=== PATIENT | male | born 1945 | race Caucasian/White ===

== ENCOUNTER → 2019-04-18 15:11 | Outpatient (BNVA) | payer MEDICARE, SELFPAY | PROVIDERS: PCP Nurse Practitioner Family; Visit Provider Nurse Practitioner Family | DX: N30.01 Acute cystitis with hematuria (principal); R39.9 Unspecified symptoms and signs involving the genitourinary system | CPT/HCPCS: 81003; 87086 ==

== ENCOUNTER → 2019-05-09 13:15 | Outpatient (BNVA) | payer MEDICARE, SELFPAY | PROVIDERS: PCP Nurse Practitioner Family; Visit Provider Nurse Practitioner Family | DX: R30.0 Dysuria (principal) | CPT/HCPCS: 81003; 87086 ==

== ENCOUNTER 2019-05-13 13:41 | Outpatient (CLI) | payer MEDICARE, SELFPAY ==
--- NOTE | 2019-05-13 13:52 | CT_ITS ---
WS: [id number] CT ABDOMEN NON-CONTRAST PLUS CONTRAST TECHNIQUE: Noncontrast CT of the abdomen and contrast-enhanced CT of the abdomen with coronal and sag ittal reformatted images. CLINICAL INFORMATION: ADRENAL NODULE COMPARISON: None. DLP: 2383.[address] scans at [facility] use at least one of these dose optimization techniques: automat ed exposure control; mA and/or kV adjustment per patient size (includes targeted exams where dose is matched to clinical indication); or iterative reconstruction. FINDINGS: Diffuse fatty infiltration of the liver. Portal vein and splenic vein are normal. Normal spleen. Normal GE junction. Lung bases are well aerated. Normal pancreatic parenchymal enhance ment. Normal caliber abdominal aorta. Mild aortic calcification. No abdominal aortic aneurysm. Right adrenal gland is normal. Left adrenal nodule measuring 13 mm. Relative and absolute washout calculati ons are consistent with adrenal adenoma. No hydronephrosis. Normal renal parenchymal enhancement. Shotty periaortic lymph nodes. Normal visual ized lumbar spine. CT/CT abdomen wo/w con [id number] IMPRESSION: 1. 13 mm left adrenal nodule with imaging characteristics consistent with adre nal adenoma. 2. Mild diffuse fatty infiltration of the liver. 3. Normal bilateral renal parenchymal enhancement. No hydronephrosis. 4. Normal caliber abdominal aorta with mild aortic calcification. 5. Shotty periaortic lymph nodes. No lymphadenopathy.
[2019-05-13 14:17] LABS: Blood Urea Nitrogen 14 mg/dL (8-23)
[2019-05-13] MEDS: iohexol 300 mg/mL 100 mL Btl IV (14:22)
== END 2019-05-13 13:42 | disposition home or self-care (01) ==
LOC: RADWPI 13:52
PROVIDERS: PCP Nurse Practitioner Family; Visit Provider Nurse Practitioner Family
DX: E27.8 Other specified disorders of adrenal gland (principal); K76.0 Fatty (change of) liver, not elsewhere classified
CPT/HCPCS: 74170; 82565; 84520; Q9967

== ENCOUNTER 2019-11-10 14:11 | Outpatient (CLI) | payer MEDICARE, SELFPAY ==
--- NOTE | 2019-11-10 14:17 | CT_ITS ---
WS: [id number] CT scan of the abdomen without Oral and IV contrast. Additional two-dimensional coronal and sagittal reconstruction was performed. 11/10/2019 Clinical Data: ADRENAL ADENOMA, LEFT FOCUS ON ADRENAL GLANDS Comparison: None. DLP: 559.[address] scans at [facility] use at least one of these dose optimization techniques: automat ed exposure control; mA and/or kV adjustment per patient size (includes targeted exams where dose is matched to clinical indication); or iterative reconstruction. Findings: The left adrenal adenoma is the same size and appearance as seen on the earlier scan. The right adren al gland is normal. The lower lungs show no nodules, masses or effusions. The liver, gallbladder, spleen, and pancreas are normal. The kidneys show equal bilateral contrast excretion with no cyst or masses. The abdominal aorta is normal in size with calcification in the wall.. No abscess, adenopathy, ascites, mass, obstruction or free air is seen. The stomach and visualized sm all bowel and colon are unremarkable. CT/CT abdomen w con* [id number] Impression: 1. No change in left adrenal adenoma. 2. Negative for acute intra-abdominal abnormalities.
[2019-11-10 14:41] LABS: Blood Urea Nitrogen 18 mg/dL (8-23)
[2019-11-10] MEDS: iohexol 300 mg/mL 100 mL Btl IV (15:00)
== END 2019-11-10 14:12 | disposition home or self-care (01) ==
LOC: RADWPI 14:14
PROVIDERS: Family Provider Nurse Practitioner Family; PCP Nurse Practitioner Family; Visit Provider Physician Assistant
DX: D35.02 Benign neoplasm of left adrenal gland (principal)
CPT/HCPCS: 74160; 82565; 84520; Q9967

== ENCOUNTER → 2020-02-01 11:23 | Outpatient (BNVA) | payer MEDICARE, SELFPAY | PROVIDERS: Family Provider Nurse Practitioner Family; PCP Nurse Practitioner Family; Visit Provider Nurse Practitioner Family | DX: E11.9 Type 2 diabetes mellitus without complications (principal); I10 Essential (primary) hypertension | CPT/HCPCS: 80053; 80061; 83036 ==

== ENCOUNTER → 2020-05-22 10:41 | Outpatient (BNVA) | payer MEDICARE, SELFPAY | PROVIDERS: Family Provider Nurse Practitioner Family; PCP Nurse Practitioner Family; Visit Provider Nurse Practitioner Family | DX: E11.9 Type 2 diabetes mellitus without complications (principal); I10 Essential (primary) hypertension; E78.5 Hyperlipidemia, unspecified | CPT/HCPCS: 80053; 80061; 83036 ==

== ENCOUNTER → 2020-11-27 15:06 | Outpatient (BNVA) | payer MEDICARE, SELFPAY | PROVIDERS: Family Provider Nurse Practitioner Family; PCP Nurse Practitioner Family; Visit Provider Nurse Practitioner Family | DX: I10 Essential (primary) hypertension (principal); E11.9 Type 2 diabetes mellitus without complications | CPT/HCPCS: 80053; 83036 ==

== ENCOUNTER → 2021-06-18 10:47 | Outpatient (BNVA) | payer MEDICARE, SELFPAY | PROVIDERS: Family Provider Nurse Practitioner Family; PCP Nurse Practitioner Family; Visit Provider Nurse Practitioner Family | DX: E11.9 Type 2 diabetes mellitus without complications (principal); I10 Essential (primary) hypertension | CPT/HCPCS: 80053; 83036 ==

== ENCOUNTER → 2022-02-25 11:49 | Outpatient (BNVA) | payer MEDICARE, SELFPAY | PROVIDERS: Family Provider Nurse Practitioner Family; PCP Nurse Practitioner Family; Visit Provider Nurse Practitioner Family | DX: E78.5 Hyperlipidemia, unspecified (principal); I10 Essential (primary) hypertension; E11.9 Type 2 diabetes mellitus without complications | CPT/HCPCS: 80053; 80061; 83036 ==

== ENCOUNTER → 2022-08-11 10:21 | Outpatient (BNVA) | payer MEDICARE, SELFPAY | PROVIDERS: Family Provider Nurse Practitioner Family; PCP Nurse Practitioner Family; Visit Provider Nurse Practitioner Family | DX: E78.5 Hyperlipidemia, unspecified (principal); I10 Essential (primary) hypertension; E11.9 Type 2 diabetes mellitus without complications | CPT/HCPCS: 80053; 80061; 83036; 85025 ==

== ENCOUNTER → 2022-12-10 09:27 | Outpatient (BNVA) | payer MEDICARE, SELFPAY | PROVIDERS: Family Provider Nurse Practitioner Family; PCP Nurse Practitioner Family; Visit Provider Nurse Practitioner Family | DX: I10 Essential (primary) hypertension (principal); E11.9 Type 2 diabetes mellitus without complications; E78.5 Hyperlipidemia, unspecified | CPT/HCPCS: 80053; 80061; 83036 ==

== ENCOUNTER → 2023-06-17 15:48 | Outpatient (BNVA) | payer MEDICARE, SELFPAY | PROVIDERS: Family Provider Nurse Practitioner Family; PCP Nurse Practitioner Family; Visit Provider Nurse Practitioner Family | DX: I10 Essential (primary) hypertension (principal); E11.9 Type 2 diabetes mellitus without complications | CPT/HCPCS: 80053; 80061; 83036 ==

== ENCOUNTER → 2023-09-03 11:22 | Outpatient (BNVA) | payer MEDICARE, SELFPAY | PROVIDERS: Family Provider Nurse Practitioner Family; PCP Nurse Practitioner Family; Visit Provider Nurse Practitioner Family | DX: E11.9 Type 2 diabetes mellitus without complications (principal); I10 Essential (primary) hypertension | CPT/HCPCS: 80053; 83036; 84439; 84443 ==

== ENCOUNTER → 2024-02-29 09:21 | Outpatient (BNVA) | payer MEDICARE, SELFPAY | PROVIDERS: Family Provider Nurse Practitioner Family; PCP Nurse Practitioner Family; Visit Provider Nurse Practitioner Family | DX: E11.9 Type 2 diabetes mellitus without complications (principal); I10 Essential (primary) hypertension | CPT/HCPCS: 80053; 80061; 83036 ==

== ENCOUNTER → 2024-09-21 15:29 | Outpatient (BNVA) | payer MEDICARE, SELFPAY | PROVIDERS: Family Provider Nurse Practitioner Family; PCP Nurse Practitioner Family; Visit Provider Nurse Practitioner Family | DX: I10 Essential (primary) hypertension (principal); E11.9 Type 2 diabetes mellitus without complications | CPT/HCPCS: 80053; 80061; 83036 ==

== ENCOUNTER 2024-10-14 10:19 | Emergency (ER) | payer MEDICARE, SELFPAY ==
--- NOTE | 2024-10-14 10:24 | XR_ITS ---
WS: [id number] XR chest 1V portable [id number] REASON FOR EXAM: palpitiations FINDINGS: Mild to moderate tortuosity and ectasia of the thoracic aorta. Normal heart size. Calcified granulomatous disease bilaterally. No acute pulmonary parenchymal or pleural abnormality. Mild degenerative spondylosis of the thoracic spine for age. XR/XR chest 1V portable [id number] IMPRESSION: No acute chest abnormality.
--- NOTE | 2024-10-14 10:24 | ECG_ITS ---
[facility] 2024-[facility]14 Pat Name: Raheem Michaels Department: Room: Gender: Male Inspector Tester Sorter: : 1945 Requested By: Jennifer Rose Order Number: [id number] Nany MD: Dayanara Lund M.D. Measurements Intervals Ronks Rate: 61 P: 64 NH: 175 QRS: -23 QRSD: 104 T: 50 QT: 374 QTc: 378 Interpretive Statements SINUS RHYTHM BORDERLINE LEFT AXIS DEVIATION [QRS AXIS < -20] INTERPRETATION BASED ON A DEFAULT AGE OF 40 YEARS No previous ECG available for comparison Electronically Signed On 10-15-2024 14:10:43 CDT by Dayanara Lund M.D. [email or web address]
--- OUTSIDE RECORDS SUMMARY | 2024-10-14 10:30 | XMS_ITS | Encounter Summary ---
Author Organization [facility] Address [address] [place] [address] Care Team Providers Care Airplane Coverer Name Role Phone Non-Staff, Physician Primary Care Provider Unava ilable Encounter Details Date Type Department Care Team (Latest Contact Info) Description 08/21/1999 Outpatient [facility] Family Medicine [place] [address] [facility] [address] [place] [address] Eitan Lazar DO NO ADDRESS ON FILE Unspecified essential hypertension (Primary Dx) Social History Tobacco Use Types Packs/Day Years Used Date Smoking Tobacco: Never Assessed Sex and Gender Information Value Date Recorded Sex Assigned at Not on file 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
--- OUTSIDE RECORDS SUMMARY | 2024-10-14 10:30 | XMS_ITS | Encounter Summary ---
Author Organization [facility] Address [address] [place] [address] Care Team Providers Care Visual Supervisor Name Role Phone Non-Staff, Physician Primary Care Provider Unava ilable Encounter Details Date Type Department Care Team (Latest Contact Info) Description 10/27/2000 Outpatient Historical [facility] Family Medicine- [address] [place] [address] Eitan Lazar, NO ADDRESS ON FILE Unspecified essential hypertension (Primary Dx) Social History Tobacco Use Types Packs/Day Years Used Date Smoking Tobacco: Never Assessed Sex and Gender Information Value Date Recorded Sex Assigned at Not on file 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
--- OUTSIDE RECORDS SUMMARY | 2024-10-14 10:30 | XMS_ITS | Encounter Summary ---
Author Organization [facility] Address [address] [place] [address] Care Team Providers Care Slitter Scorer Cut Off Operator Name Role Phone Non-Staff, Physician Primary Care Provider Unava ilable Encounter Details Date Type Department Care Team (Latest Contact Info) Description 08/15/2003 Outpatient Historical 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
--- OUTSIDE RECORDS SUMMARY | 2024-10-14 10:30 | XMS_ITS | Encounter Summary ---
Author Organization [facility] Address [address] [place] [address] Care Team Providers Care Social Worker Masters Name Role Phone Non-Staff, Physician Primary Care Provider Unava ilable Encounter Details Date Type Department Care Team (Latest Contact Info) Description 02/09/2004 Outpatient Historical [facility] Family Medicine [place] [address] [facility] [address] [place] [address] Eitan Lazar DO NO ADDRESS ON FILE HYPERTENSION NOS (Primary Dx) Social History Tobacco Use Types Packs/Day Years Used Date Smoking Tobacco: Never Assessed Sex and Gender Information Value Date Recorded Sex Assigned at Not on file Legal Sex Male 6:01 AM LAWYERS Gender Identity Not on file Sexual Orientation Not on file documented as of this encounter Plan of Treatment Not on file documented as of this encounter Visit Diagnoses Diagnosis Unspecified essential hypertension- Primary documented in this encounter Care Teams Social Worker Masters Relationship Specialty Start Date End Date Non-Staff, Physician NO ADDRESS ON FILE PCP - General 12/22/19 documented as of this encounter
--- OUTSIDE RECORDS SUMMARY | 2024-10-14 10:30 | XMS_ITS | Encounter Summary ---
Author Organization [facility] Address [address] [place] [address] Care Team Providers Care Carry In Worker Name Role Phone Non-Staff, Physician Primary Care Provider Unava ilable Encounter Details Date Type Department Care Team (Latest Contact Info) Description 11/23/2001 Outpatient Historical [facility] Family Medicine- [address] [place] [address] Eitan Lazar DO NO ADDRESS ON FILE HYPERTENSION NOS (Primary Dx) Social History Tobacco Use Types Packs/Day Years Used Date Smoking Tobacco: Never Assessed Sex and Gender Information Value Date Recorded Sex Assigned at Not on file Legal 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
--- OUTSIDE RECORDS SUMMARY | 2024-10-14 10:30 | XMS_ITS | Clinical Summary ---
Author Organization [facility] Address [address]: [place] [address] Care Team Providers Care Auto Top Mechanic Name Role Phone Non-Staff, Physician Primary Care Provider Unava ilable Allergies No known active allergies Medications amLODIPine (NORVASC) 10 mg tablet TAKE 1 TABLET BY MOUTH ONCE DAILY *DUE FOR APPOINTMENT WITH PRIMARY CARE PHYSICIAN AND LABS FOR FUTURE REFILLS* 7 Tablet 0 0 Active glipiZIDE (GLUCOTROL) 10 mg tablet TAKE 1 TABLET BY MOUTH TWICE DAILY WITH MEALS.. 180 Tablet 3 9 Active dicyclomine (BENTYL) 10 mg capsuleIndicatio ns:Abdominal pain, unspecified abdominal location TAKE 1 CAPSULE ( 10 MG ) BY MOUTH 4 TIMES DAILY FOR 10 DAYS 40 Capsule 1 9 Active hydroCHLOROthiaz south 25 mg tablet TAKE 1 TABLET BY MOUTH ONCE DAILY 90 Tablet 0 9 Active amLODIPine (NORVASC) 10 mg tablet TAKE 1 TABLET BY MOUTH ONCE DAILY 90 Tablet 1 9 Active lisinopriL (PRINIVIL) 20 mg tabletIndication s:Essential hypertension TAKE 1 TABLET BY MOUTH TWICE DAILY. 180 Tablet 3 8 Active metoprolol tartrate 37.5 mg TabletIndication s:Essential hypertension TAKE ONE TABLET BY MOUTH TWICE DAILY. 180 Tablet 3 8 Active amitriptyline (ELAVIL) 50 mg tablet TAKE ONE TABLET BY MOUTH TWICE DAILY. 180 Tablet 3 8 Active metFORMIN (GLUCOPHAGE XR) 500 mg Extended Release 24 hour tabletIndication s:Type 2 diabetes mellitus without complication, without long-term current use of insulin ([facility]) TAKE TWO TABLETS BY MOUTH TWICE DAILY WITH MEALS and 1 tab at noon. 450 Tablet 1 8 Active Active Problems Problem Noted Date Diagnosed Date Hypertension 03/21/2011 DM (diabetes mellitus), type 2 03/21/2011 Immunizations Immunization Administration Dates Next Due (TDVAX)(7 YRS UP) TETANUS AN D DIPHTHERIA TOXOIDS, ADSORBED (2 LF OF TETANUS TOXOID AND 2 LF OF DIPHTHERIA TOXOID), 0.5ML (PF), IM 01/26/2007 Influenza Seasonal Unspecifi ed Formulation IM 12/28/2006,01/28/2006,02/24/2005 Social History Tobacco Use Types Packs/Day Years Used Date Smoking Tobacco: Former Smokeless Tobacco: Never Alcohol Use Standard Drinks/Week Comments No 0 (1 standard drink = 0.6 oz pur e alcohol) Sex and Gender Information Value Date Recorded Sex Assigned at Not on file Legal Sex Male 12:27 AM I O PSYCHOLOGIST Gender Identity Not on file Sexual Orientation Not on file Last Filed Vital Signs Vital Sign Reading Time Taken Comments Blood Pressure 130/72 10/13/2019 2:50 PM CDT Pulse 72 10/13/2019 2:50 PM CDT Temperature 36.7 C (98 F) 10/13/2018 1:46 PM CDT Respiratory Rate 16 10/13/2018 1:46 PM CDT Oxygen Saturation - - Inhaled Oxygen Concentration - - Weight 86.2 kg (190 lb) 10/13/2019 2:50 PM CDT Height 182.9 cm (6') 10/13/2019 2:50 PM CDT Body Mass Index 25.77 10/13/2019 2:50 PM CDT Plan of Treatment Health Maintenance Due Date Last Done Comments DIABETES ANNUAL RETINAL EXAM 1965 PNEUMOCOCCAL VACCINE 50+ YEA RS (1 of 2 - PCV) 1966 ZOSTER VACCINE (1 of 2) 1997 DTAP/TDAP/TD VACCINES (1 - Tdap) 01/27/2007 01/27/20 07 DIABETES ANNUAL FOOT EXAM 09/01/20182017, 08/27/2017, 07/24/2016 DIABETES MICROALBUMIN ANNUAL SCREEN 11/10/2018 11/10/2017, 07/17/2016 LDL CHOLESTEROL ANNUAL 11/10/2018 11/10/2017, 2014 DIABETES HBA1C Q 6 MONTHS 11/19/20202020, 02/01/2020, 12/02/2018, Additional history exists RSV VACCINE (60+ or ) (1 - 1-dose 75+ series) 2022 INFLUENZA VACCINE (#1) 2024 7, 01/28/2006, 02/24/2005 Procedures Procedure Name Priority Date/Time Associated Diagnosis Comments MICROALBUMIN/CREATININE RATIO, RANDOM UR 11/10/2017 12:00 AM CDT LIPID PANEL 11/10/2017 12:00 AM CDT HEMOGLOBIN A1C 11/10/2017 12:00 AM CDT from Last 3 Months or Most Recently Relevant to Health Maintenance Results * MICROALBUMIN/CREATININE RATIO, RANDOM UR (11/10/2017 12:00 AM CDT) [employer] ROLL TUBE SETTER URINE ORDERABLES Final Resu lt * HEMOGLOBIN A1C (11/10/2017 12:00 AM CDT) [employer] ROLL TUBE SETTER CHEMISTRY ORDERABLES Final Result * LIPID PANEL (11/10/2017 12:00 AM CDT) [employer] ROLL TUBE SETTER CHEMISTRY ORDERABLES Final Result from Last 3 Months or Most Recently Relevant to Health Maintenance Care Teams Auto Top Mechanic Relationship Specialty Start Date End Date Non-Staff, Physician NO ADDRESS ON FILE PCP - General 12/22/19
--- OUTSIDE RECORDS SUMMARY | 2024-10-14 10:30 | XMS_ITS | Clinical Summary ---
Author Organization [facility] Address [address] [facility] [address] [place] [address] Care Team Providers Care Study Abroad Advisor Name Role Phone Non-Staff, Physician Primary Care Provider Unava ilable Allergies No known active allergies Medications amitriptyline (ELAVIL) 50 mg tablet TAKE ONE TABLET BY MOUTH TWICE DAILY. 180 Tablet 3 8 Active lisinopril (PRINIVIL) 20 mg tabletIndication s:Essential hypertension TAKE 1 TABLET BY MOUTH TWICE DAILY. 180 Tablet 3 8 Active metoprolol tartrate 37.5 mg TabletIndication s:Essential hypertension TAKE ONE TABLET BY MOUTH TWICE DAILY. 180 Tablet 3 8 Active metFORMIN (GLUCOPHAGE XR) 500 mg Extended Release 24 hour tabletIndication s:Type 2 diabetes mellitus without complication, without long-term current use of insulin ([facility]) TAKE TWO TABLETS BY MOUTH TWICE DAILY WITH MEALS and 1 tab at noon. 450 Tablet 1 8 Active glipiZIDE (GLUCOTROL) 10 mg tablet TAKE 1 TABLET BY MOUTH TWICE DAILY WITH MEALS.. 180 Tablet 3 9 Active dicyclomine (BENTYL) 10 mg capsuleIndicatio ns:Abdominal pain, unspecified abdominal location TAKE 1 CAPSULE ( 10 MG ) BY MOUTH 4 TIMES DAILY FOR 10 DAYS 40 Capsule 1 9 Active amLODIPine (NORVASC) 10 mg tablet TAKE 1 TABLET BY MOUTH ONCE DAILY 90 Tablet 1 9 Active HYDROCHLOROTHIAZ DAYDAY 25 mg tablet TAKE 1 TABLET BY MOUTH ONCE DAILY 90 Tablet 9 Active amLODIPine (NORVASC) 10 mg tablet TAKE 1 TABLET BY MOUTH ONCE DAILY *DUE FOR APPOINTMENT WITH PRIMARY CARE PHYSICIAN AND LABS FOR FUTURE REFILLS* 7 Tablet 0 Active Active Problems Problem Noted Date Diagnosed [...] on file Legal 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 Gender Identity Not on file Sexual Orientation Not on file Last Filed Vital Signs Vital Sign Reading Time Taken Comments Blood Pressure 130/72 10/13/2019 2:50 PM CDT Pulse 72 10/13/2019 2:50 PM CDT Temperature 36.7 C (98 F) 10/13/2018 1:46 PM CDT Respiratory Rate 16 10/13/2018 1:46 PM CDT Oxygen Saturation 94% 10/13/2018 1:46 PM CDT Inhaled Oxygen Concentration - - Weight 86.2 [...] 01/27/2007 01/27/20 07 DIABETES ANNUAL FOOT EXAM 08/27/2018 08/27/2017, DIABETES MICROALBUMIN ANNUAL SCREEN 11/10/2018 11/10/2017, 07/17/2016, 03/27/2011 LDL CHOLESTEROL ANNUAL 11/10/2018 8, 11/02/2014, 09/01/2013, Additional history exists DIABETES HBA1C Q 6 MONTHS 07/31/20202019, 12/02/2018, 11/10/2017, Additional history exists RSV VACCINE (60+ or ) (1 - 1-dose 75+ series) 2022 INFLUENZA VACCINE (#1) 2024 7, 01/28/2006, 02/24/2005 Procedures Procedure Name Priority Date/Time Associated Diagnosis Comments MICROALBUMIN/CREATINI NE RATIO, RANDOM UR Routine 11/10/2017 Type 2 diabetes mellitus without complication, without long-term current use of insulin ([facility]) LIPID PANEL Routine 11/10/2017 Essential hypertension HEMOGLOBIN A1C Routine 11/10/2017 Type 2 diabetes mellitus without complication, without long-term current use of insulin ([facility]) from Last 3 Months or Most Recently Relevant to Health Maintenance Results * MICROALBUMIN/CREATININE RATIO, RANDOM UR (11/10/2017) Urine URINE SPECIMEN OBTAINED BY CLEAN CATCH PROCEDURE / Unknown [employer] URINE ORDERABLES Final Resu lt Performing Organization Address [facility]/ZIP Co de Phone Number [facility] * (ABNORMAL) HEMOGLOBIN A1C (11/10/2017) Blood Social Tools [employer]EN CHEMISTRY ORDERABLES Final Result Performing Organization Address [facility] Co de Phone Number [facility] * LIPID PANEL (11/10/2017) Blood Social Tools CHUR[employer] WARDEN CHEMISTRY ORDERABLES Final Result [facility] from Last 3 Months or Most Recently Relevant to Health Maintenance Insurance MEDICARE PART A AND B Care Teams Study Abroad Advisor Relationship Specialty Start Date End Date Non-Staff, Physician NO ADDRESS ON FILE PCP - General 12/22/19
--- OUTSIDE RECORDS SUMMARY | 2024-10-14 10:30 | XMS_ITS | Encounter Summary ---
Author Organization [facility] Address [address] [place] [address] Care Team Providers Care Window Treatment Installer Name Role Phone Non-Staff, Physician Primary Care Provider Unava ilable Encounter Details Date Type Department Care Team (Latest Contact Info) Description 06/18/1998 Outpatient Historical [facility] Family Medicine [place] [address] [facility] [address] [place] [address] Eitan Lazar DO NO ADDRESS ON FILE Unspecified essential hypertension (Primary Dx) Social History Tobacco Use Types Packs/Day Years Used Date Smoking Tobacco: Never Assessed Sex and Gender Information Value Date Recorded Sex Assigned at Not on file Legal 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
--- OUTSIDE RECORDS SUMMARY | 2024-10-14 10:30 | XMS_ITS | Encounter Summary ---
Author Organization [facility] Address [address] [place] [address] Care Team Providers Care Sciences Dean Name Role Phone Non-Staff, Physician Primary Care Provider Unava ilable Encounter Details Date Type Department Care Team (Latest Contact Info) Description 02/24/2005 Outpatient Historical [facility] Family Medicine [place] [address] [facility] [address] [place] [address] Eitan Lazar DO NO ADDRESS ON FILE HYPERTENSION NOS (Primary Dx); Vaccine for influenza Social History Tobacco Use Types Packs/Day Years Used Date Smoking Tobacco: Never Assessed Sex and Gender Information Value Date Recorded Sex Assigned at Not on file 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
--- OUTSIDE RECORDS SUMMARY | 2024-10-14 10:30 | XMS_ITS | Encounter Summary ---
Author Organization [facility] Address [address] [place] [address] Care Team Providers Care Court Specialist Name Role Phone Non-Staff, Physician Primary Care Provider Unava ilable Encounter Details Date Type Department Care Team (Latest Contact Info) Description 10/23/1999 Outpatient [facility] Family Medicine [place] [address] [facility] [address] [place] [address] Eitan Lazar DO NO ADDRESS ON FILE Type II or unspecified type diabetes mellitus without mention of complication, not stated as uncontrolled (Primary Dx) Social History Tobacco Use Types Packs/Day Years Used Date Smoking Tobacco: Never Assessed Sex and Gender Information Value Date Recorded Sex Assigned at Not on file Legal 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
--- OUTSIDE RECORDS SUMMARY | 2024-10-14 10:30 | XMS_ITS | Encounter Summary ---
Author Organization [facility] Address [address] [place] [address] Care Team Providers Care Pet Supplies Salesperson Name Role Phone Non-Staff, Physician Primary Care Provider Unava ilable Encounter Details Date Type Department Care Team (Latest Contact Info) Description 01/28/2006 Outpatient [facility] Family Medicine [place] [address] [facility] [address] [place] [address] Eitan Lazar DO NO ADDRESS ON FILE Unspecified Essential Hypertension (Primary Dx); Other and Unspecified Hyperlipidemia; Vaccine for influenza Social History Tobacco Use Types Packs/Day Years Used Date Smoking Tobacco: Never Assessed Sex and Gender Information Value Date Recorded Sex Assigned at Not on file Legal Sex Male 6:01 AM CARGO SERVICE AGENT Gender Identity Not on file Sexual Orientation Not on file documented as of this encounter Plan of Treatment Not on file documented as of this encounter Visit Diagnoses Diagnosis Unspecified essential hypertension- Primary Other and unspecified hyperlipidemia Vaccine for influenza Need for prophylactic vaccination and inoculation against influenza documented in this encounter Care Teams Pet Supplies Salesperson Relationship Specialty Start Date End Date Non-Staff, Physician NO ADDRESS ON FILE PCP - General 12/22/19 documented as of this encounter
--- OUTSIDE RECORDS SUMMARY | 2024-10-14 10:30 | XMS_ITS | Encounter Summary ---
Author Organization [facility] Address [address] [place] [address] Care Team Providers Care Pharmacy Assistant Name Role Phone Non-Staff, Physician Primary Care Provider Unava ilable Encounter Details Date Type Department Care Team (Latest Contact Info) Description 10/04/1999 Outpatient [facility] Family Medicine [place] [address] [facility] [address] [place] [id number] Eitan Lazar DO NO ADDRESS ON FILE Type II or unspecified type diabetes mellitus without mention of complication, not stated as uncontrolled (Primary Dx) Social History Tobacco Use Types Packs/Day Years Used Date Smoking Tobacco: Never Assessed Sex and Gender Information Value Date Recorded Sex Assigned at Not on file Legal Sex Male 6: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
--- OUTSIDE RECORDS SUMMARY | 2024-10-14 10:30 | XMS_ITS | Encounter Summary ---
Author Organization [facility] Address [address] [place] [address] Care Team Providers Care Nurse Infection Control Name Role Phone Non-Staff, Physician Primary Care Provider Unava ilable Encounter Details Date Type Department Care Team (Latest Contact Info) Description 10/02/2005 Outpatient [facility] Family Medicine [place] [address] [facility] [address] [place] [address] Eitan Lazar DO NO ADDRESS ON FILE DM w/o Complication Type II (CMS/HCC) (Primary Dx) Social History Tobacco Use Types Packs/Day Years Used Date Smoking Tobacco: Never Assessed Sex and Gender Information Value Date Recorded Sex Assigned at Not on file 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
--- OUTSIDE RECORDS SUMMARY | 2024-10-14 10:30 | XMS_ITS | Encounter Summary ---
Author Organization [facility] Address [address] [place] [address] Care Team Providers Care Balance Clerk Name Role Phone Non-Staff, Physician Primary Care Provider Unava ilable Encounter Details Date Type Department Care Team (Latest Contact Info) Description 12/14/2002 Outpatient Historical [facility] Family Medicine [place] [address] [facility] [address] [place] [address] Eitan Lazar DO NO ADDRESS ON FILE HYPERTENSION NOS (Primary Dx) Social History Tobacco Use Types Packs/Day Years Used Date Smoking Tobacco: Never Assessed Sex and Gender Information Value Date Recorded Sex Assigned at Not on file 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
[2024-10-14 10:35] VITALS: BP 119/61; PULSE 61; RESP 16; TEMP 36.7; O2SAT 97; BMI 25.1
[2024-10-14 11:15] LABS: Hematocrit 35.9 % (37-53); Hemoglobin 12.30 g/dL (11.27-16.99); Mean Corpuscular HGB Conc 34.3 g/dL (30-55); Mean Corpuscular Hemoglobin 29.9 pg (27-33); Mean Corpuscular Volume 87.3 fl (82-101); Nucleated Red Blood Cells % 0 %; Platelet Count 171 10^3/cmm (157-399); Red Blood Count 4.11 10^6/uL (3.85-5.65); White Blood Count 9.10 10^3/uL (3.29-11.43)
[2024-10-14 11:29] VITALS: BP 116/83; PULSE 60; RESP 16; O2SAT 99
--- NOTE | 2024-10-14 11:30 | PC.PHAR ---
Pt has an rx for Glipizide 10mg bid 08/09/24 90ds-Pt states provider stopped this medication inn August.
[2024-10-14 11:31] VITALS: BP 116/83; PULSE 60; RESP 18; O2SAT 99
[2024-10-14 11:36] LABS: Magnesium 1.7 mg/dL (1.7-2.3); Troponin(5th) Baseline 16 ng/L (0-15)
[2024-10-14 11:37] LABS: Slide Review Slide Review Perform
[2024-10-14 11:44] LABS: Alanine Aminotransferase 10 U/L (0-41); Albumin Level 4.5 g/dL (3.5-5.2); Alkaline Phosphatase 109 U/L (40-130); Anion Gap 19.4 (5-19); Aspartate Amino Transferase 15 U/L (0-40); Blood Urea Nitrogen 15 mg/dL (8-23); Calcium 9.7 mg/dL (8.5-10.5); Carbon Dioxide 27 mmol/L (22-29); Chloride 88 mmol/L (98-107); Creatinine Clr Calc Pharmacy 52.3915; Globulin 2.0 g/dL (1.3-4.6); Glucose 143 mg/dL (65-115); NT Pro B Type Natriuretic Pept 228 pg/mL (0-450); Osmolality Calculated 273 mOsm/kg (285-295); Potassium 4.4 mmol/L (3.5-5.1); Sodium 130 mmol/L (136-145); Total Protein 6.5 g/dL (6.6-8.7)
--- NOTE | 2024-10-14 12:29 | W.ED.ARRPALP ---
HPI - Arrhythmia/Palpitations General: Chief Complaint: Arrhythmia/Palpitations Stated Complaint: dr rudy for heart fluttering Time Seen by Provider: 10/14/24 10:57 Source: patient History of Present Illness: 79-year-old male presents with complaint of heart fluttering or skipping for approximately 2 weeks. Patient reports these episodes typically occur in the morning hours. He states the sensation feels like his heart is skipping and typically resolves within about an hour after taking his morning medications. Today's episode woke him up, and he checked his heart rate, which was 82 bpm at the time of symptoms. Patient denies any associated chest pain, shortness of breath, or other symptoms. He reports that his heart rate is typically maintained between 55-60 bpm on his current medications, and he feels these episodes may be occurring as his medications are wearing off. Patient contacted his PCP, Dr. Tolentino, who advised him to come to the ED for evaluation. Related Data Home Medications ?Medication ?Instructions ?Recorded ?Confirmed amitriptyline 50 mg tablet 50 mg PO BID 10/14/24 10/14/24 amlodipine 10 mg tablet 10 mg PO DAILY 10/14/24 10/14/24 dicyclomine 20 mg tablet 20 mg PO TID PRN abdominal pain 10/14/24 10/14/24 hydrochlorothiazide 25 mg tablet 25 mg PO DAILY 10/14/24 10/14/24 lisinopril 20 mg tablet 20 mg PO BID 10/14/24 10/14/24 Previous Rx's ?Medication ?Instructions ?Recorded metformin 1,000 mg tablet 1,000 mg PO BID #180 tabs 09/21/24 metoprolol tartrate 100 mg tablet 100 mg PO BID #180 tabs 09/21/24 Allergies Allergy/AdvReac Type Severity Reaction Status Date / Time No Known Allergies Allergy Verified 02/29/24 08:56 [facility] ED PFSH: Medical History (Updated 10/14/24 @ 12:31 by Oscar Virk MD) Anxiety Hx of irritable bowel syndrome DM w/o complication type II HTN (hypertension) Adrenal nodule Family History Father Hypertension Diabetes Social History Smoking and tobacco/nicotine status: never used tobacco/nicotine Alcohol intake: never Substance/Drug Use: never Lives independently: Yes Household members: spouse Housing: House Marital status: Physical Exam Const: COMMON NORMALS: no acute distress, average body habitus, alert and well nourished GENERAL APPEARANCE: cooperative ORIENTATION/CONSCIOUSNESS: Yes awake HENMT: COMMON NORMALS: normocephalic and atraumatic HEAD & SCALP: normocephalic and atraumatic Eye: COMMON NORMALS: conjunctivae normal CONJUNCTIVA: Yes conjunctivae normal Neck/C-Spine: GENERAL: Yes normal visual inspection Resp: COMMON NORMALS: normal respiratory effort, No retractions and No use of accessory muscles Cardio: COMMON NORMALS: regular rhythm and Peripheral pulses 2+ throughout RHYTHM: regular rhythm PERIPHERAL PULSES: Peripheral pulses 2+ throughout GI: COMMON NORMALS: Soft to palpation and non-tender PALPATION: Yes Soft to palpation Extremity: COMMON NORMALS: full ROM and no pedal edema Neuro: COMMON NORMALS: no focal motor deficits SENSORIUM/ORIENTATION: Yes alert Skin: COMMON NORMALS: no rashes or lesions noted GENERAL SKIN EXAM: no rashes or lesions noted Course Vital Signs: Vital signs: Vital Signs Temperature 98.1 F 10/14/24 10:35 Pulse Rate 60 10/14/24 11:31 Respiratory Rate 18 10/14/24 11:31 Blood Pressure 116/83 10/14/24 11:31 Pulse Oximetry 99 10/14/24 11:31 Oxygen Delivery Me thod Room Air 10/14/24 10:35 MDM - Arrhythmia/Palpitations Medical Decision Making ROS: Constitutional: Denies fever, chills, or fatigue. Cardiovascular: Positive for palpitations/irregular heartbeat. Denies chest pain, syncope, or edema. Respiratory: Denies shortness of breath, cough, or wheezing. All other systems reviewed and negative. MEDICATIONS AND ALLERGIES: Meds: Metoprolol 100 mg (previously 75 mg), Aspirin daily, Diabetes medication (unspecified) Allergies: None reported PAST HISTORICAL DATA: PMH: Diabetes, Hypertension, History of irregular heart rhythm (unspecified type, occurred a long time ago ) PSH: None reported Social: Not documented Family History: Not documented PHYSICAL EXAM: General: Well-appearing male in no acute distress HEENT: Head normocephalic and atraumatic. Mucous membranes moist Neck: Supple Respiratory: Clear breath sounds bilaterally. No increased work of breathing Cardiac: Regular rate and rhythm. Equal pulses times four. No murmurs noted Abdomen: Soft, non-distended, no rebound or guarding Extremities: No clubbing, cyanosis, or edema Neuro: Cranial nerves grossly intact, no focal motor or sensory deficits noted INITIAL IMPRESSION AND PLAN: Given the history and presentation, the primary working diagnosis is intermittent cardiac dysrhythmia, possibly premature ventricular contractions (PVCs) or paroxysmal atrial fibrillation. Additional considerations include medication timing effect, sinus arrhythmia, and anxiety-related palpitations. Based on this initial impression I will order: 1. EKG to evaluate for any current arrhythmia or conduction abnormalities 2. Basic labs including CBC, CMP, and cardiac enzymes to rule out any metabolic causes or cardiac injury 3. Chest X-ray to evaluate for any cardiopulmonary abnormalities 4. Cardiology consultation for outpatient Holter monitor placement TEST INTERPRETATIONS: EKG: Sinus rhythm. No ischemic changes, ST elevations, or depressions CBC: WBC 9.1, Hemoglobin 12.3, Platelets 171 - within acceptable limits CMP: Sodium 130, Chloride 88, BUN 15, Creatinine 1.3 - mild hyponatremia noted Cardiac enzymes: Troponin 16 (just barely elevated above normal range) Chest X-ray: Negative for acute cardiopulmonary processes CONSIDERED BUT NOT PERFORMED: Inpatient cardiac monitoring CONSIDERED but NOT DONE due to no perceived benefit given symptoms have been ongoing for two weeks, current normal EKG, essentially normal troponin, and stable vital signs. Outpatient Holter monitoring is more appropriate for capturing intermittent symptoms. FINAL IMPRESSION: Based on all the above, my clinical impression is most compatible with intermittent cardiac dysrhythmia, likely premature ventricular contractions (PVCs) or paroxysmal atrial fibrillation. The clinical picture is not currently suggestive of acute coronary syndrome, heart failure, or valvular heart disease. Although other conditions were also considered, they were deemed unlikely based on the clinical information available. CLINICAL DISPOSITION: The patient's current condition is stable in my estimation and the most appropriate and indicated disposition at this time is discharge home with outpatient Holter monitor and follow-up with PCP. The patient is safe for discharge home as he has had these symptoms for two weeks without progression, has normal vital signs, a normal EKG, and essentially normal cardiac enzymes. His symptoms are intermittent and have consistently resolved on their own. He is alert, oriented, and able to understand discharge instructions. Outpatient monitoring with a Holter monitor is the appropriate next step to capture these intermittent episodes, as discussed with cardiology. RISK STRATIFICATION AND CLINICAL DECISION RULES APPLIED: HEART Score: 2 (Low Risk) - History: Moderately suspicious (1 point) - ECG: Normal (0 points) - Age: >=5 years (1 point) - Risk factors: Hypertension, diabetes (0 points - need 3+ for 1 point) - Troponin: Normal or slightly elevated (0 points) Interpretation: HEART score of 2 indicates a low risk (<2%) of major adverse cardiac events within 6 weeks. This supports the decision for outpatient management with follow-up rather than admission. CASE SUMMARY: 79-year-old male with history of diabetes and hypertension presented with 2-week history of intermittent heart fluttering or skipping sensations, typically occurring in the morning and resolving after taking his medications. Patient denied chest pain, shortness of breath, or other concerning symptoms. Physical examination was unremarkable with normal vital signs. Diagnostic workup included EKG showing normal sinus rhythm, laboratory studies with mild hyponatremia and minimally elevated troponin, and a negative chest X-ray. After consultation with cardiology, it was determined that the patient's symptoms were consistent with intermittent cardiac dysrhythmia, possibly PVCs or paroxysmal atrial fibrillation. Given the stable presentation, low HEART score, and duration of symptoms without progression, the patient was discharged home with plans for outpatient Holter monitoring and follow-up with his primary care physician. Patient was provided with clear instructions on when to return to the ED if symptoms worsen. Lab Data I reviewed the patient's lab results. 10/14/24 11:06 10/14/24 11:06 Radiology Impressions Chest X-Ray 10/14/24 10:24 IMPRESSION: No acute chest abnormality. Laboratory Results WBC 9.10 10^3/uL (3.29-11.43) 10/14/24 11:06 RBC 4.11 10^6/uL (3.85-5.65) 10/14/24 11:06 Hgb 12.30 g/dL (11.27-16.99) 10/14/24 11:06 Hct 35.9 % (37-53) L 10/14/24 11:06 MCV 87.3 fl (82-101) 10/14/24 11:06 MCH 29.9 pg (27-33) 10/14/24 11:06 MCHC 34.3 g/dL (30-55) 10/14/24 11:06 RDW 13.2 % (12.1-15.1) 10/14/24 11:06 Plt Count 171 10^3/cmm (157-399) 10/14/24 11:06 MPV 8.7 fL (7.4-10.4) 10/14/24 11:06 Neut % (Auto) 34.5 % 10/14/24 11:06 Lymph % (Auto) 56.8 % 10/14/24 11:06 [place] % (Auto) 7.3 % 10/14/24 11:06 Eos % (Auto) 0.8 % 10/14/24 11:06 Baso % (Auto) 0.3 % 10/14/24 11:06 Neut # (Auto) 3.14 10^3/uL (1.8-7.7) 10/14/24 11:06 Lymph # (Auto) 5.2 10^3/uL (0.8-4.8) H 10/14/24 11:06 [place] # (Auto) 0.7 10^3/uL (0.2-0.9) 10/14/24 11:06 Eos # (Auto) 0.1 10^3/uL (0.0-0.8) 10/14/24 11:06 Baso # (Auto) 0.0 10^3/uL (0.0-0.1) 10/14/24 11:06 Nucleated RBC % (auto) 0 % 10/14/24 11:06 Nucleated RBCs # 0.0 /100WBC 10/14/24 11:06 Sodium 130 mmol/L (136-145) L 10/14/24 11:06 Potassium 4.4 mmol/L (3.5-5.1) 10/14/24 11:06 Chloride 88 mmol/L (98-107) L 10/14/24 11:06 Carbon Dioxide 27 mmol/L (22-29) 10/14/24 11:06 Anion Gap 19.4 (5-19) H 10/14/24 11:06 BUN 15 mg/dL (8-23) 10/14/24 11:06 Creatinine 1.3 mg/dL (0.7-1.2) H 10/14/24 11:06 GFR Calculation Not Reportable 10/14/24 11:06 Glucose 143 mg/dL (65-115) H 10/14/24 11:06 Calculated Osmolality 273 mOsm/kg (285-295) L 10/14/24 11:06 Calcium 9.7 mg/dL (8.5-10.5) 10/14/24 11:06 Magnesium 1.7 mg/dL (1.7-2.3) 10/14/24 11:06 Total Bilirubin 0.3 mg/dL (0.15-1.2) 10/14/24 11:06 AST 15 U/L (0-40) 10/14/24 11:06 ALT 10 U/L (0-41) 10/14/24 11:06 Alkaline Phosphatase 109 U/L (40-130) 10/14/24 11:06 Troponin T Baseline 16 ng/L (0-15) H 10/14/24 11:06 NT-Pro-B Natriuret Pep 228 pg/mL (0-450) 10/14/24 11:06 Total Protein 6.5 g/dL (6.6-8.7) L 10/14/24 11:06 Albumin 4.5 g/dL (3.5-5.2) 10/14/24 11:06 Globulin 2.0 g/dL (1.3-4.6) 10/14/24 11:06 All radiology interpretation(s) finalized by discharge Discharge Plan Discharge Patient Disposition: Home Clinical Impression: Palpitations Condition: Stable Prescriptions: No Action metformin 1,000 mg tablet 1,000 mg PO BID Qty: 180 1RF metoprolol tartrate 100 mg tablet 100 mg PO BID Qty: 180 1RF lisinopril 20 mg tablet 20 mg PO BID amitriptyline 50 mg tablet 50 mg PO BID dicyclomine 20 mg tablet 20 mg PO TID PRN (Reason: abdominal pain ) amlodipine 10 mg tablet 10 mg PO DAILY hydrochlorothiazide 25 mg tablet 25 mg PO DAILY Discharge Orders: Discharge ED (Routine); Ordered 10/14/24 Ordered By: Oscar Virk Referrals: Randa Rojas FNP [Primary Care Provider, Family Practice] Dayanara Lund MD [Physician, Cardiology] - 2 weeks Discharge Activity: Resume usual activity Patient Instructions: Heart Palpitations (ED), Opioid Safety, Pain Management, Patient Portal & Tyra Instructions Activity Restrictions/Additional Instructions: Instructions: 1. Continue all your current medications as prescribed, including your Metoprolol and daily aspirin. 2. Follow up with your primary care physician, Dr. Tolentino, within 1 week to discuss your symptoms and arrange for Holter monitor placement. 3. Rest as needed and avoid excessive caffeine, alcohol, and strenuous activity until evaluated by your doctor. 4. Monitor your heart rate and blood pressure as you have been doing. Return to the Emergency Department immediately if you experience: - Chest pain or pressure - Shortness of breath or difficulty breathing - Dizziness, lightheadedness, or fainting - Palpitations that do not resolve or are accompanied by other symptoms - Severe headache or confusion Print Language: Yoruba Coding Level of Care Code ED Egg Separator for Alex Dee
[2024-10-14 12:51] VITALS: BP 131/67; PULSE 59; RESP 16; O2SAT 99
== END 2024-10-14 12:52 | disposition home or self-care (01) ==
PROVIDERS: Physician Assistant; Emergency Provider Student in an Organized Health Care Education/Training Program; PCP Nurse Practitioner Family
DX: R00.2 Palpitations (principal); Z79.84 Long term (current) use of oral hypoglycemic drugs
CPT/HCPCS: 36415; 71045; 80053; 83735; 83880; 84484; 85025; 93005; 99285

== ENCOUNTER 2024-10-18 10:17 | Emergency (ER) | payer MEDICARE, SELFPAY ==
--- NOTE | 2024-10-18 10:18 | XR_ITS ---
WS: [id number] PORTABLE CHEST HISTORY: chest pain COMPARISON: 10/14/2024 Lungs are clear and well expanded. No pleural effusion or pneumothorax. Cardiac size: Normal. Mediastinum/Aorta: Normal mediastinum. No osseous abnormality seen. XR/XR chest 1V portable [id number] IMPRESSION: Unremarkable portable chest.
--- NOTE | 2024-10-18 10:18 | ECG_ITS ---
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 Measurements Intervals [place] Rate: 58 P: 70 NV: 195 QRS: -10 QRSD: 101 T: 48 QT: 383 QTc: 379 Interpretive Statements SINUS BRADYCARDIA INTERPRETATION BASED ON A DEFAULT AGE OF 40 YEARS Compared to ECG 10/14/2024 10:33:39 Sinus rhythm no longer present Electronically Signed On 10-20-2024 09:05:18 CDT by Wyatt Friend M.D. [id number]
--- NOTE | 2024-10-18 10:28 | W.ED.ARRPALP ---
HPI - Arrhythmia/Palpitations General: Chief Complaint: Arrhythmia/Palpitations Stated Complaint: Heart Palpitations Time Seen by Provider: 10/18/24 10:18 Source: patient Mode of arrival: ambulatory Limitations: no limitations History of Present Illness: 79-year-old male who presents to the ED with complaints of palpitations since last night. Patient was here 4 days ago for the same complaint and was discharged home with instructions to follow-up with primary care and plan for Holter monitor. Patient states that last night his episode lasted longer than it normally does, lasting almost all night. He was concerned with the duration of his episode but states that the episode felt the same as his previous ones. He states that his heart feels like it is skipping beats . States he has had these symptoms all my life . He reports that currently in the ED his symptom has resolved. Denies any recent dizziness, lightheadedness, dyspnea, or syncope. He has an appointment with his primary care on Thursday. He is currently on metoprolol tartrate 100 mg BID. No other complaints at this time. He has no chest pain, dyspnea, or palpitations at time of my initial examination. MD complaint: skipped beats Onset (ago): day(s) (1) Duration: now resolved Severity: mild Context: occurred during rest Associated symptoms: Reports no associated symptoms; Deny nausea, pre-syncope, syncope or vomiting Related Data Home Medications ?Medication ?Instructions ?Recorded ?Confirmed amitriptyline 50 mg tablet 50 mg PO BID 10/14/24 10/14/24 amlodipine 10 mg tablet 10 mg PO DAILY 10/14/24 10/14/24 dicyclomine 20 mg tablet 20 mg PO TID PRN abdominal pain 10/14/24 10/14/24 hydrochlorothiazide 25 mg tablet 25 mg PO DAILY 10/14/24 10/14/24 lisinopril 20 mg tablet 20 mg PO BID 10/14/24 10/14/24 Previous Rx's ?Medication ?Instructions ?Recorded metformin 1,000 mg tablet 1,000 mg PO BID #180 tabs 09/21/24 metoprolol tartrate 100 mg tablet 100 mg PO BID #180 tabs 09/21/24 Allergies Allergy/AdvReac Type Severity Reaction Status Date / Time No Known Allergies Allergy Verified 02/29/24 08:56 Review of Systems Const: Denies: fever(s), chills, body aches, fatigue or malaise Card: Reports: palpitations; Denies: chest pain, irregular heart rhythm, edema, swelling of feet/ankles, lightheadedness, syncope, pre-syncope, dyspnea on exertion, orthopnea, leg pain with exertion or acrocyanosis Resp: Denies: dyspnea GI: Denies: nausea or vomiting Neuro: Denies: headache(s) or dizziness PFSH ED PFSH: Medical History Anxiety Hx of irritable bowel syndrome DM w/o complication type II HTN (hypertension) Adrenal nodule Family History Father Hypertension Diabetes Social History Smoking and tobacco/nicotine status: never used tobacco/nicotine Alcohol intake: never Substance/Drug Use: never Lives independently: Yes Household members: spouse Housing: House Marital status: Physical Exam Const: COMMON NORMALS: no acute distress, average body habitus, patient oriented x3, no limitations, healthy appearing, alert and well nourished GENERAL APPEARANCE: cooperative ORIENTATION/CONSCIOUSNESS: Yes awake, Yes oriented to person, Yes oriented to place and Yes oriented to time HENMT: COMMON NORMALS: normocephalic and atraumatic HEAD & SCALP: normocephalic and atraumatic Neck/C-Spine: COMMON NORMALS: full ROM, no lymphadenopathy, supple and no meningeal signs Chest: COMMONS NORMALS: normal inspection of the chest Resp: COMMON NORMALS: normal respiratory effort and clear to auscultation bilaterally AUSCULTATION: clear to auscultation bilaterally Cardio: COMMON NORMALS: regular rhythm RATE: bradycardic RHYTHM: regular rhythm GI: COMMON NORMALS: Normal to inspection, nondistended, normoactive bowel sounds present, Soft to palpation, non-tender, No hepatosplenomegaly present and no masses PALPATION: Yes Soft to palpation and Yes No hepatosplenomegaly present : COMMON NORMALS: Yes no CVA tenderness BLADDER/KIDNEY EXAM: Yes no CVA tenderness Back/Pelvis: COMMON NORMALS: no CVA tenderness and thoracic and lumbar spine normal to inspection Extremity: COMMON NORMALS: normal to inspection, capillary refill normal, no clubbing, cyanosis or edema, no calf tenderness and no pedal edema GENERAL: Yes normal exam except as noted Neuro: COMMON NORMALS: patient oriented x3, moves all extremities, no focal motor deficits, no sensory deficits noted and gait normal SENSORIUM/ORIENTATION: Yes alert, Yes oriented to person, Yes oriented to place and Yes oriented to time MENINGEAL SIGNS: Yes no meningeal signs Skin: COMMON NORMALS: no rashes or lesions noted GENERAL SKIN EXAM: no rashes or lesions noted Course Vital Signs: Vital signs: Vital Signs Temperature 98.0 F 10/18/24 10:31 Pulse Rate 54 L 10/18/24 10:31 Respiratory Rate 16 10/18/24 10:31 Blood Pressure 149/75 10/18/24 10:31 Pulse Oximetry 100 10/18/24 10:31 Oxygen Delivery Me thod Room Air 10/18/24 10:31 MDM - Arrhythmia/Palpitations Medical Decision Making Patient has been completely asymptomatic during his stay. EKG is nonischemic. His baseline troponin is 16 which seems to be his normal. He has no complaints of chest pain. CXR is unremarkable. Spoke to our case management team who will work on getting him set up with an outpatient Holter monitor as they do not think this was completed on his last visit. He does have follow-up with primary care on Thursday. Patient is stable for discharge from the emergency department. Differential Diagnosis Likely palpitations, anxiety, sinus tachycardia, artial fibrillation, ventricular premature beats and supraventricular tachycardia Medical Records I reviewed the patient's medical records. Lab Data I reviewed the patient's lab results. 10/18/24 10:55 10/18/24 10:55 Radiology Impressions Chest X-Ray 10/18/24 10:18 IMPRESSION: Unremarkable portable chest. Laboratory Results WBC 8.28 10^3/uL (3.29-11.43) 10/18/24 10:55 RBC 3.97 10^6/uL (3.85-5.65) 10/18/24 10:55 Hgb 12.10 g/dL (11.27-16.99) 10/18/24 10:55 Hct 34.6 % (37-53) L 10/18/24 10:55 MCV 87.2 fl (82-101) 10/18/24 10:55 MCH 30.5 pg (27-33) 10/18/24 10:55 MCHC 35.0 g/dL (30-55) 10/18/24 10:55 RDW 13.2 % (12.1-15.1) 10/18/24 10:55 Plt Count 144 10^3/cmm (157-399) L 10/18/24 10:55 MPV 8.8 fL (7.4-10.4) 10/18/24 10:55 Neut % (Auto) 26.8 % 10/18/24 10:55 Lymph % (Auto) 69.2 % 10/18/24 10:55 [place] % (Auto) 2.4 % 10/18/24 10:55 Eos % (Auto) 0.8 % 10/18/24 10:55 Baso % (Auto) 0.4 % 10/18/24 10:55 Neut # (Auto) 2.22 10^3/uL (1.8-7.7) 10/18/24 10:55 Lymph # (Auto) 5.7 10^3/uL (0.8-4.8) H 10/18/24 10:55 [place] # (Auto) 0.2 10^3/uL (0.2-0.9) 10/18/24 10:55 Eos # (Auto) 0.1 10^3/uL (0.0-0.8) 10/18/24 10:55 Baso # (Auto) 0.0 10^3/uL (0.0-0.1) 10/18/24 10:55 Nucleated RBC % (auto) 0 % 10/18/24 10:55 Nucleated RBCs # 0.0 /100WBC 10/18/24 10:55 Sodium 131 mmol/L (136-145) L 10/18/24 10:55 Potassium 3.9 mmol/L (3.5-5.1) 10/18/24 10:55 Chloride 91 mmol/L (98-107) L 10/18/24 10:55 Carbon Dioxide 26 mmol/L (22-29) 10/18/24 10:55 Anion Gap 17.9 (5-19) 10/18/24 10:55 BUN 11 mg/dL (8-23) 10/18/24 10:55 Creatinine 1.2 mg/dL (0.7-1.2) 10/18/24 10:55 GFR Calculation Not Reportable 10/18/24 10:55 Glucose 141 mg/dL (65-115) H 10/18/24 10:55 Calculated Osmolality 274 mOsm/kg (285-295) L 10/18/24 10:55 Calcium 9.5 mg/dL (8.5-10.5) 10/18/24 10:55 Total Bilirubin 0.3 mg/dL (0.15-1.2) 10/18/24 10:55 AST 13 U/L (0-40) 10/18/24 10:55 ALT 10 U/L (0-41) 10/18/24 10:55 Alkaline Phosphatase 105 U/L (40-130) 10/18/24 10:55 Troponin T Baseline 16 ng/L (0-15) H 10/18/24 10:55 NT-Pro-B Natriuret Pep 243 pg/mL (0-450) 10/18/24 10:55 Total Protein 6.2 g/dL (6.6-8.7) L 10/18/24 10:55 Albumin 4.2 g/dL (3.5-5.2) 10/18/24 10:55 Globulin 2.0 g/dL (1.3-4.6) 10/18/24 10:55 All radiology interpretation(s) finalized by discharge Discharge Plan Discharge Patient Disposition: Home Clinical Impression: Palpitations Condition: Stable Prescriptions: No Action metformin 1,000 mg tablet 1,000 mg PO BID Qty: 180 1RF metoprolol tartrate 100 mg tablet 100 mg PO BID Qty: 180 1RF lisinopril 20 mg tablet 20 mg PO BID amitriptyline 50 mg tablet 50 mg PO BID dicyclomine 20 mg tablet 20 mg PO TID PRN (Reason: abdominal pain ) amlodipine 10 mg tablet 10 mg PO DAILY hydrochlorothiazide 25 mg tablet 25 mg PO DAILY Discharge Orders: Discharge ED (Routine); Ordered 10/18/24 Ordered By: Jennifer Rose Referrals: Randa Rojas FNP [Primary Care Provider, Family Practice] Patient Instructions: Heart Palpitations (DC), Patient Portal & Tyra Instructions Activity Restrictions/Additional Instructions: As we discussed, your workup here was benign. You have been asymptomatic during your emergency department stay. Plan will be for you to follow-up with primary care on Thursday as scheduled. Our case management team is working on your outpatient Holter monitor. Print Language: Cook Islander Coding Level of Care Code ED Independent Living Specialist for Alex Dee
--- OUTSIDE RECORDS SUMMARY | 2024-10-18 10:28 | XMS_ITS | Encounter Summary ---
Author Organization [facility] Address [address] [place] [address] Care Team Providers Care Keeper Head Name Role Phone Non-Staff, Physician Primary Care Provider Unava ilable Encounter Details Date Type Department Care Team (Latest Contact Info) Description 12/14/2002 Outpatient Historical [facility] Family Medicine [place] [address] [facility] [address] [place] [address] Eitan Lazar DO NO ADDRESS ON FILE HYPERTENSION NOS (Primary Dx) Social History Tobacco Use Types Packs/Day Years Used Date Smoking Tobacco: Never Assessed Sex and Gender Information Value Date Recorded Sex Assigned at Not on file 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
--- OUTSIDE RECORDS SUMMARY | 2024-10-18 10:28 | XMS_ITS | Encounter Summary ---
Author Organization [facility] Address [address] [place] [address] Care Team Providers Care Vacuum Pan Operator Name Role Phone Non-Staff, Physician Primary Care Provider Unava ilable Encounter Details Date Type Department Care Team (Latest Contact Info) Description 10/04/1999 Outpatient [facility] Family Medicine [place] [address] [facility] [address] [place] [address] Eitan Lazar DO NO ADDRESS ON FILE Type II or unspecified type diabetes mellitus without mention of complication, not stated as uncontrolled (Primary Dx) Social History Tobacco Use Types Packs/Day Years Used Date Smoking Tobacco: Never Assessed Sex and Gender Information Value Date Recorded Sex Assigned at Not on file 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
--- OUTSIDE RECORDS SUMMARY | 2024-10-18 10:28 | XMS_ITS | Encounter Summary ---
Author Organization [facility] Address [address] [place] [address] Care Team Providers Care Retail Sales Clerk Name Role Phone Non-Staff, Physician Primary Care Provider Unava ilable Encounter Details Date Type Department Care Team (Latest Contact Info) Description 11/23/2001 Outpatient Historical [facility] Family Medicine- [address] [place] [address] Eitan Lazar DO NO ADDRESS ON FILE HYPERTENSION NOS (Primary Dx) Social History Tobacco Use Types Packs/Day Years Used Date Smoking Tobacco: Never Assessed Sex and Gender Information Value Date Recorded Sex Assigned at Not on file 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
--- OUTSIDE RECORDS SUMMARY | 2024-10-18 10:28 | XMS_ITS | Encounter Summary ---
Author Organization [facility] Address [address] [place] [address] Care Team Providers Care Transmission Superintendent Name Role Phone Non-Staff, Physician Primary Care Provider Unava ilable Encounter Details Date Type Department Care Team (Latest Contact Info) Description 10/27/2000 Outpatient Historical [facility] Family Medicine- [address] [place] [address] Eitan Lazar, NO ADDRESS ON FILE Unspecified essential hypertension (Primary Dx) Social History Tobacco Use Types Packs/Day Years Used Date Smoking Tobacco: Never Assessed Sex and Gender Information Value Date Recorded Sex Assigned at Not on file 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
--- OUTSIDE RECORDS SUMMARY | 2024-10-18 10:28 | XMS_ITS | Encounter Summary ---
Author Organization [facility] Address [address] [place] [address] Care Team Providers Care Maintenance Equipment Operator Name Role Phone Non-Staff, Physician Primary Care Provider Unava ilable Encounter Details Date Type Department Care Team (Latest Contact Info) Description 08/15/2003 Outpatient Historical 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
--- OUTSIDE RECORDS SUMMARY | 2024-10-18 10:28 | XMS_ITS | Encounter Summary ---
Author Organization [facility] Address [address] [place] [address] Care Team Providers Care Telecommunications Specialist Name Role Phone Non-Staff, Physician Primary Care Provider Unava ilable Encounter Details Date Type Department Care Team (Latest Contact Info) Description 02/09/2004 Outpatient Historical [facility] Family Medicine [place] 104 [facility] [address] [place] [address] Eitan Lazar DO NO ADDRESS ON FILE HYPERTENSION NOS (Primary Dx) Social History Tobacco Use Types Packs/Day Years Used Date Smoking Tobacco: Never Assessed Sex and Gender Information Value Date Recorded Sex Assigned at Not on file 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
--- OUTSIDE RECORDS SUMMARY | 2024-10-18 10:28 | XMS_ITS | Encounter Summary ---
Author Organization [facility] Address [address] [place] [address] Care Team Providers Care Appliance Fixer Name Role Phone Non-Staff, Physician Primary Care Provider Unava ilable Encounter Details Date Type Department Care Team (Latest Contact Info) Description 01/28/2006 Outpatient [facility] Family Medicine [place] 104 [facility] [address] [place] [address] Eitan Lazar DO NO ADDRESS ON FILE Unspecified Essential Hypertension (Primary Dx); Other and Unspecified Hyperlipidemia; Vaccine for influenza Social History Tobacco Use Types Packs/Day Years Used Date Smoking Tobacco: Never Assessed Sex and Gender Information Value Date Recorded Sex Assigned at Not on file 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
--- OUTSIDE RECORDS SUMMARY | 2024-10-18 10:28 | XMS_ITS | Encounter Summary ---
Author Organization [facility] Address [address] [place] [address] Care Team Providers Care Ribbon Blocker Name Role Phone Non-Staff, Physician Primary Care Provider Unava ilable Encounter Details Date Type Department Care Team (Latest Contact Info) Description 08/21/1999 Outpatient [facility] Family Medicine [place] 104 [facility] [address] [place] [address] Eitan Lazar DO NO ADDRESS ON FILE Unspecified essential hypertension (Primary Dx) Social History Tobacco Use Types Packs/Day Years Used Date Smoking Tobacco: Never Assessed Sex and Gender Information Value Date Recorded Sex Assigned at Not on file 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
--- OUTSIDE RECORDS SUMMARY | 2024-10-18 10:28 | XMS_ITS | Encounter Summary ---
Author Organization [facility] Address [address] [place] [address] Care Team Providers Care Director Biology Name Role Phone Non-Staff, Physician Primary Care Provider Unava ilable Encounter Details Date Type Department Care Team (Latest Contact Info) Description 06/18/1998 Outpatient Historical [facility] Family Medicine [place] 104 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
--- OUTSIDE RECORDS SUMMARY | 2024-10-18 10:28 | XMS_ITS | Encounter Summary ---
Author Organization [facility] Address [address] [place] [address] Care Team Providers Care Slip Cover Operator Name Role Phone Non-Staff, Physician Primary Care Provider Unava ilable Encounter Details Date Type Department Care Team (Latest Contact Info) Description 02/24/2005 Outpatient Historical 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
--- OUTSIDE RECORDS SUMMARY | 2024-10-18 10:28 | XMS_ITS | Clinical Summary ---
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 Gender Identity Not on file Sexual Orientation [...] complication, without long-term current use of insulin ([facility]) LIPID PANEL Routine 11/10/2017 Essential hypertension HEMOGLOBIN A1C Routine 11/10/2017 Type 2 diabetes mellitus without complication, without long-term current use of insulin ([facility]) from Last 3 Months or Most Recently Relevant to Health Maintenance Results * MICROALBUMIN/CREATININE RATIO, RANDOM UR (11/10/2017) Urine URINE SPECIMEN OBTAINED BY CLEAN CATCH PROCEDURE / Unknown copygramP URINE ORDERABLES Final Resu lt Performing Organization Address [facility]/ZIP Co de Phone Number [facility] * (ABNORMAL) HEMOGLOBIN A1C (11/10/2017) Blood ExpertFlyer TIRE REPAIRMAN CHEMISTRY ORDERABLES Final Result Performing Organization Address [facility] Co de Phone Number [facility] * LIPID PANEL (11/10/2017) Blood ExpertFlyer TIRE REPAIRMAN CHEMISTRY ORDERABLES Final Result [facility] from Last 3 Months or Most Recently Relevant to Health Maintenance Insurance MEDICARE PART A AND B Care Teams Auto Service Representative Relationship Specialty Start Date End Date Non-Staff, Physician NO ADDRESS ON FILE PCP - General 12/22/19
--- OUTSIDE RECORDS SUMMARY | 2024-10-18 10:28 | XMS_ITS | Encounter Summary ---
Author Organization [facility] Address [address] [place] [address] Care Team Providers Care Machine Binder Stripper Name Role Phone Non-Staff, Physician Primary Care Provider Unava ilable Encounter Details Date Type Department Care Team (Latest Contact Info) Description 10/23/1999 Outpatient [facility] Family Medicine [place] 104 [facility] 60 [place] [address] Eitan Lazar DO NO ADDRESS ON FILE Type II or unspecified type diabetes mellitus without mention of complication, not stated as uncontrolled (Primary Dx) Social History Tobacco Use Types Packs/Day Years Used Date Smoking Tobacco: Never Assessed Sex and Gender Information Value Date Recorded Sex Assigned at Not on file 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
--- OUTSIDE RECORDS SUMMARY | 2024-10-18 10:28 | XMS_ITS | Encounter Summary ---
Author Organization [facility] Address [address] [place] [address] Care Team Providers Care Professor Of Medicine Name Role Phone Non-Staff, Physician Primary Care Provider Unava ilable Encounter Details Date Type Department Care Team (Latest Contact Info) Description 10/02/2005 Outpatient [facility] Family Medicine [place] [address] [facility] [address] [place] [address] Eitan Lazar DO NO ADDRESS ON FILE DM w/o Complication Type II (CMS/HCC) (Primary Dx) Social History Tobacco Use Types Packs/Day Years Used Date Smoking Tobacco: Never Assessed Sex and Gender Information Value Date Recorded Sex Assigned at Not on file 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
[2024-10-18 10:31] VITALS: BP 149/75; PULSE 54; RESP 16; TEMP 36.7; O2SAT 100; BMI 25.1
--- NOTE | 2024-10-18 10:37 | DCPLANNER ---
Message sent to cardiology
[2024-10-18 11:00] VITALS: BP 138/73; PULSE 51; O2SAT 96
[2024-10-18 11:14] LABS: Hematocrit 34.6 % (37-53); Hemoglobin 12.10 g/dL (11.27-16.99); Mean Corpuscular HGB Conc 35.0 g/dL (30-55); Mean Corpuscular Hemoglobin 30.5 pg (27-33); Mean Corpuscular Volume 87.2 fl (82-101); Nucleated Red Blood Cells % 0 %; Platelet Count 144 10^3/cmm (157-399); Red Blood Count 3.97 10^6/uL (3.85-5.65); White Blood Count 8.28 10^3/uL (3.29-11.43)
[2024-10-18 11:30] VITALS: BP 120/82; PULSE 53; O2SAT 97
[2024-10-18 11:35] LABS: Troponin(5th) Baseline 16 ng/L (0-15)
[2024-10-18 11:42] LABS: Alanine Aminotransferase 10 U/L (0-41); Albumin Level 4.2 g/dL (3.5-5.2); Alkaline Phosphatase 105 U/L (40-130); Anion Gap 17.9 (5-19); Aspartate Amino Transferase 13 U/L (0-40); Blood Urea Nitrogen 11 mg/dL (8-23); Calcium 9.5 mg/dL (8.5-10.5); Carbon Dioxide 26 mmol/L (22-29); Chloride 91 mmol/L (98-107); Creatinine Clr Calc Pharmacy 56.7575; Globulin 2.0 g/dL (1.3-4.6); Glucose 141 mg/dL (65-115); NT Pro B Type Natriuretic Pept 243 pg/mL (0-450); Osmolality Calculated 274 mOsm/kg (285-295); Potassium 3.9 mmol/L (3.5-5.1); Sodium 131 mmol/L (136-145); Total Protein 6.2 g/dL (6.6-8.7)
[2024-10-18 12:00] VITALS: BP 137/67; PULSE 56; O2SAT 96
[2024-10-18 12:21] VITALS: BP 137/67; PULSE 56; O2SAT 96
== END 2024-10-18 12:21 | disposition home or self-care (01) ==
PROVIDERS: Emergency Provider Physician Assistant; PCP Nurse Practitioner Family
DX: R00.2 Palpitations (principal); Z79.84 Long term (current) use of oral hypoglycemic drugs; I10 Essential (primary) hypertension; E11.9 Type 2 diabetes mellitus without complications
CPT/HCPCS: 36415; 71045; 80053; 83880; 84484; 85025; 93005; 99285

== ENCOUNTER → 2024-11-01 08:30 | Outpatient (BNVA) | payer MEDICARE, SELFPAY | PROVIDERS: PCP Nurse Practitioner Family; Visit Provider Internal Medicine Cardiovascular Disease | DX: R00.2 Palpitations (principal); I49.3 Ventricular premature depolarization; I49.1 Atrial premature depolarization | CPT/HCPCS: 93242 ==

== ENCOUNTER → 2024-11-22 15:13 | Outpatient (BNVA) | payer MEDICARE, SELFPAY | PROVIDERS: PCP Nurse Practitioner Family; Visit Provider Internal Medicine Cardiovascular Disease | DX: R00.2 Palpitations (principal); I49.1 Atrial premature depolarization; I10 Essential (primary) hypertension | CPT/HCPCS: 99204 ==

== ENCOUNTER → 2024-11-25 09:31 | Outpatient (BNVA) | payer MEDICARE, SELFPAY | PROVIDERS: PCP Nurse Practitioner Family; Visit Provider Nurse Practitioner Family | DX: R00.2 Palpitations (principal) | CPT/HCPCS: 84443 ==

== ENCOUNTER 2024-12-23 12:13 | Outpatient (CLI) | payer MEDICARE, SELFPAY ==
--- NOTE | 2024-12-23 12:45 | USCV_ITS ---
Raheem Michaels Age: 79 Gender: M : 1945 Exam Date: 12/23/2024 12:27 Ordering Phys: Adrián Carpenter MD ([email or web address]) Technologist: Omid Lazar Exam Location: [facility] [place] Indication: palpitations BP: 120 / 70 HR: 63 Rhythm: Sinus Technical Quality: Adequate MEASUREMENTS (Male / Female) Normal Values 2D ECHO LV Diastolic Diameter PLAX 3.1 cm 4.2 - 5.9 / 3.9 - 5.3 cm IVS Diastolic Thickness 1.3 cm 0.6 - 1.0 / 0.6 - 0.9 cm IVS Systolic Thickness 1.6 cm LVPW Diastolic Thickness 1.3 cm 0.6 - 1.0 / 0.6 - 0.9 cm LVPW Systolic Thickness 1.5 cm LVOT Diameter 2.0 cm LV Ejection Fraction 2D Teich 66.6 % LV Ejection Fraction MOD 4C 60.4 % LV Ejection Fraction MOD 2C 59.4 % LV Ejection Fraction 2C AL 57.3 % RA Systolic Volume 4C AL 15.4 ml RA Systolic Volume 4C MOD 15.9 ml LA Sys Volume AL 29.2 cm cubed LA Sys Volume Index AL 14.8 cm cubed/m squared IVC Diameter 1.4 cm M-MODE LA Ao Ratio MM 1.2 AV Cusp Separation MM 1.8 cm DOPPLER AV Peak Velocity 146.0 cm/s LVOT Peak Velocity 119.0 cm/s AV Area Cont Eq vti 2.2 cm squared AV Area Cont Eq pk 2.6 cm squared MV Peak Velocity 110.0 cm/s MV Area PHT 3.4 cm squared Mitral E to A Ratio 0.6 TV Peak Velocity 267.5 cm/s TR Peak Velocity 284.0 cm/s TR Peak Gradient 32.3 mmHg TR Mean Velocity 236.0 cm/s TR Mean Gradient 23.0 mmHg TR Velocity Time Integral 78.0 cm PV Peak Velocity 107.7 cm/s RV Ejection Time 0.2 s FINDINGS Left Ventricle Normal left ventricular cavity size. Mild left ventricular hypertrophy. Normal left ventricular systolic function. Left ventricular ejection fraction is 60%. Normal diastolic function. Right Ventricle Normal right ventricular size and systolic function. Normal right ventricular systolic pressure. Right Atrium Normal right atrial size. Left Atrium Normal left atrial size. Mitral Valve Mild systolic anterior motion of the anterior mitral valve leaflet. No pressure gradient in the left ventricular outflow tract demonstrated. No mitral valve regurgitation. Aortic Valve No aortic valve stenosis. Mild aortic valve regurgitation. Tricuspid Valve Trace tricuspid valve regurgitation. Pulmonic Valve No pulmonary valve stenosis. No pulmonary valve regurgitation. Pericardium No pericardial effusion. Aorta Normal size aortic root and proximal ascending aorta. IVC Normal inferior vena cava. CONCLUSIONS 1. Normal left ventricular cavity size, systolic function, diastolic function and ejection fraction of 60%. 2. Mild global left ventricular hypertrophy 3. 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 No pressure gradient in the left ventricular outflow tract demonstrated. No mitral valve regurgitation. Adrián Carpenter MD, FACC (Electronically Signed) Final Date: 23 December 2024 17:17 S
== END 2024-12-23 12:14 | disposition home or self-care (01) ==
PROVIDERS: PCP Nurse Practitioner Family; Visit Provider Internal Medicine Cardiovascular Disease
DX: R00.2 Palpitations (principal)
CPT/HCPCS: 93306

== ENCOUNTER 2025-02-11 10:18 | Emergency (ER) | payer MEDICARE, SELFPAY ==
--- NOTE | 2025-02-11 10:10 | XRR_ITS ---
PROCEDURE INFORMATION: Exam: XR Chest Exam date and time: 02/11/2025 10:23 AM Age: 80 years old Clinical indication: Other: Syncope TECHNIQUE: Imaging protocol: Radiologic exam of the chest. Views: 1 view. COMPARISON: CR XR chest 1V portable [id number] 10/18/2024 10:31 AM FINDINGS: Lungs: Unremarkable. No consolidation. Pleural spaces: Unremarkable. No gross pleural effusion. No pneumothorax. Heart/Mediastinum: Unremarkable. No cardiomegaly. Bones/joints: Unremarkable. XR/XR chest 1V portable [id number] IMPRESSION: No acute findings.
[2025-02-11 10:21] VITALS: BP 114/86; PULSE 77; RESP 17; TEMP 36.7; O2SAT 94; BMI 23.0
--- OUTSIDE RECORDS SUMMARY | 2025-02-11 10:21 | XMS_ITS | Encounter Summary ---
Author Organization [facility] Address [address] [place] [address] Care Team Providers Care Dog Boarder Name Role Phone Non-Staff, Physician Primary Care Provider Unava ilable Encounter Details Date Type Department Care Team (Latest Contact Info) Description 12/14/2002 Outpatient Historical [facility] Family Medicine [place] 104 [facility] [address] [place] [address] Eitan Lazar DO NO ADDRESS ON FILE HYPERTENSION NOS (Primary Dx) Social History Tobacco Use Types Packs/Day Years Used Date Smoking Tobacco: Never Assessed Sex and Gender Information Value Date Recorded Sex Assigned at Not on file 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
--- OUTSIDE RECORDS SUMMARY | 2025-02-11 10:21 | XMS_ITS | Encounter Summary ---
Author Organization [facility] Address [address] [place] [address] Care Team Providers Care Substance Abuse Clinician Name Role Phone Non-Staff, Physician Primary Care Provider Unava ilable Encounter Details Date Type Department Care Team (Latest Contact Info) Description 11/23/2001 Outpatient Historical [facility] Family Medicine- [address] [place] [address] Eitan Lazar DO NO ADDRESS ON FILE HYPERTENSION NOS (Primary Dx) Social History Tobacco Use Types Packs/Day Years Used Date Smoking Tobacco: Never Assessed Sex and Gender Information Value Date Recorded Sex Assigned at Not on file 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
--- OUTSIDE RECORDS SUMMARY | 2025-02-11 10:22 | XMS_ITS | Encounter Summary ---
Author Organization [facility] Address [address] [place] [address] Care Team Providers Care Craft Coordinator Name Role Phone Non-Staff, Physician Primary Care Provider Unava ilable Encounter Details Date Type Department Care Team (Latest Contact Info) Description 10/04/1999 Outpatient [facility] Family Medicine [place] 104 [facility] [address] [place] [address] Eitan Lazar DO NO ADDRESS ON FILE Type II or unspecified type diabetes mellitus without mention of complication, not stated as uncontrolled (Primary Dx) Social History Tobacco Use Types Packs/Day Years Used Date Smoking Tobacco: Never Assessed Sex and Gender Information Value Date Recorded Sex Assigned at Not on file 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
--- OUTSIDE RECORDS SUMMARY | 2025-02-11 10:22 | XMS_ITS | Encounter Summary ---
Author Organization [facility] Address [address] [place] [address] Care Team Providers Care Site Supervisor Name Role Phone Non-Staff, Physician Primary Care Provider Unava ilable Encounter Details Date Type Department Care Team (Latest Contact Info) Description 10/23/1999 Outpatient [facility] Family Medicine [place] [address] [facility] [address] [place] [address] Eitan Lazar DO NO ADDRESS ON FILE Type II or unspecified type diabetes mellitus without mention of complication, not stated as uncontrolled (Primary Dx) Social History Tobacco Use Types Packs/Day Years Used Date Smoking Tobacco: Never Assessed Sex and Gender Information Value Date Recorded Sex Assigned at Not on file 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
--- OUTSIDE RECORDS SUMMARY | 2025-02-11 10:22 | XMS_ITS | Encounter Summary ---
Author Organization [facility] Address [address] [place] [address] Care Team Providers Care Carpentry Professional Name Role Phone Non-Staff, Physician Primary Care Provider Unava ilable Encounter Details Date Type Department Care Team (Latest Contact Info) Description 08/21/1999 Outpatient [facility] Family Medicine [place] 104 [facility] [address] [place] [address] Eitan Lazar DO NO ADDRESS ON FILE Unspecified essential hypertension (Primary Dx) Social History Tobacco Use Types Packs/Day Years Used Date Smoking Tobacco: Never Assessed Sex and Gender Information Value Date Recorded Sex Assigned at Not on file Legal Sex Male 6:01 AM ONCOLOGY SOCIAL WORK Gender Identity Not on file Sexual Orientation Not on file documented as of this encounter Plan of Treatment Not on file documented as of this encounter Visit Diagnoses Diagnosis Unspecified essential hypertension- Primary documented in this encounter Care Teams Carpentry Professional Relationship Specialty Start Date End Date Non-Staff, Physician NO ADDRESS ON FILE PCP - General 12/22/19 documented as of this encounter
--- OUTSIDE RECORDS SUMMARY | 2025-02-11 10:22 | XMS_ITS | Encounter Summary ---
Author Organization [facility] Address [address] [place] [address] Care Team Providers Care Assembler Arranger Name Role Phone Non-Staff, Physician Primary Care Provider Unava ilable Encounter Details Date Type Department Care Team (Latest Contact Info) Description 10/27/2000 Outpatient Historical [facility] Family Medicine- [address] [place] [address] Eitan Lazar, NO ADDRESS ON FILE Unspecified essential hypertension (Primary Dx) Social History Tobacco Use Types Packs/Day Years Used Date Smoking Tobacco: Never Assessed Sex and Gender Information Value Date Recorded Sex Assigned at Not on file Legal 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
--- OUTSIDE RECORDS SUMMARY | 2025-02-11 10:23 | XMS_ITS | Encounter Summary ---
Author Organization [facility] Address [address] [place] [address] Care Team Providers Care Avionics Systems Engineer Name Role Phone Non-Staff, Physician Primary Care Provider Unava ilable Encounter Details Date Type Department Care Team (Latest Contact Info) Description 06/18/1998 Outpatient Historical [facility] Family Medicine [place] [address] [facility] [address] [place] [address] Eitan Lazar DO NO ADDRESS ON FILE Unspecified essential hypertension (Primary Dx) Social History Tobacco Use Types Packs/Day Years Used Date Smoking Tobacco: Never Assessed Sex and Gender Information Value Date Recorded Sex Assigned at Not on file Legal Sex Male 6: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
--- OUTSIDE RECORDS SUMMARY | 2025-02-11 10:23 | XMS_ITS | Encounter Summary ---
Author Organization [facility] Address [address] [place] [address] Care Team Providers Care Search Manager Name Role Phone Non-Staff, Physician Primary Care Provider Unava ilable Encounter Details Date Type Department Care Team (Latest Contact Info) Description 01/28/2006 Outpatient [facility] Family Medicine [place] [address] [facility] [address] [place] [address] Eitan Lazar DO NO ADDRESS ON FILE Unspecified Essential Hypertension (Primary Dx); Other and Unspecified Hyperlipidemia; Vaccine for influenza Social History Tobacco Use Types Packs/Day Years Used Date Smoking Tobacco: Never Assessed Sex and Gender Information Value Date Recorded Sex Assigned at Not on file Legal 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
--- OUTSIDE RECORDS SUMMARY | 2025-02-11 10:23 | XMS_ITS | Clinical Summary ---
Author Organization [facility] Address [address] [facility] Attn: [place] [address] Care Team Providers Care Program Schedule Clerk Name Role Phone Non-Staff, Physician Primary [...] complication, without long-term current use of insulin (CMS/HCC) TAKE TWO TABLETS BY MOUTH TWICE DAILY [...] on file Legal Sex Male 12:27 AM MRI TECH Gender Identity Not on file Sexual Orientation [...] RATIO, RANDOM UR (11/10/2017 12:00 AM CDT) [facility] MOBILE PATROL OFFICER URINE ORDERABLES Final Resu lt * HEMOGLOBIN A1C (11/10/2017 12:00 AM CDT) [facility] MOBILE PATROL OFFICER CHEMISTRY ORDERABLES Final Result * LIPID PANEL (11/10/2017 12:00 AM CDT) [facility] MOBILE PATROL OFFICER CHEMISTRY ORDERABLES Final Result from Last 3 Months or Most Recently Relevant to Health Maintenance Care Teams Program Schedule Clerk Relationship Specialty Start Date End Date Non-Staff, Physician NO ADDRESS ON FILE PCP - General 12/22/19
--- NOTE | 2025-02-11 10:24 | ECG_ITS ---
[facility]25[facility]11 Pat Name: Raheem Michaels Department: Room: Gender: Male Kiln Burner Helper: : 1945 Requested By: Ronnie Fairchild Order Number: [id number] Nany MD: Adrián Carpenter M.D. Measurements Intervals [place] Rate: 77 P: 48 DC: 180 QRS: -32 QRSD: 105 T: 53 QT: 363 QTc: 413 Interpretive Statements SINUS RHYTHM LEFT AXIS DEVIATION [QRS AXIS < -30] Compared to ECG 10/18/2024 10:24:25 Left-axis deviation now present Sinus bradycardia no longer present Electronically Signed On 02-12-2025 15:23:06 OVEN PRESS TENDER by Adrián Carpenter M.D. [id number] [id number]
--- OUTSIDE RECORDS SUMMARY | 2025-02-11 10:24 | XMS_ITS | Encounter Summary ---
Author Organization [facility] Address [address] [place] [address] Care Team Providers Care Vessel Builder Name Role Phone Non-Staff, Physician Primary Care Provider Unava ilable Encounter Details Date Type Department Care Team (Latest Contact Info) Description 10/02/2005 Outpatient [facility] Family Medicine [place] [address] [facility] [address] [place] [address] Eitan Lzaar DO NO ADDRESS ON FILE DM w/o Complication Type II (CMS/HCC) (Primary Dx) Social History Tobacco Use Types Packs/Day Years Used Date Smoking Tobacco: Never Assessed Sex and Gender Information Value Date Recorded Sex Assigned at Not on file Legal Sex Male 6:01 AM PATIENT ADMITTING CLERK Gender Identity Not on file Sexual Orientation Not on file documented as of this encounter Plan of Treatment Not on file documented as of this encounter Visit Diagnoses Diagnosis Type II or unspecified type diabetes mellitus without mention of complication, not stated as uncontrolled- Primary documented in this encounter Care Teams Vessel Builder Relationship Specialty Start Date End Date Non-Staff, Physician NO ADDRESS ON FILE PCP - General 12/22/19 documented as of this encounter
--- OUTSIDE RECORDS SUMMARY | 2025-02-11 10:24 | XMS_ITS | Encounter Summary ---
Author Organization [facility] Address [address] [place] [address] Care Team Providers Care Licensed Life And Health Agent Name Role Phone Non-Staff, Physician Primary Care Provider Unava ilable Encounter Details Date Type Department Care Team (Latest Contact Info) Description 02/09/2004 Outpatient Historical [facility] Family Medicine [place] [address] 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
--- OUTSIDE RECORDS SUMMARY | 2025-02-11 10:24 | XMS_ITS | Encounter Summary ---
Author Organization [facility] Address [address] [place] [address] Care Team Providers Care Duct Cleaner Name Role Phone Non-Staff, Physician Primary Care Provider Unava ilable Encounter Details Date Type Department Care Team (Latest Contact Info) Description 02/24/2005 Outpatient Historical [facility] Family Medicine [place] [address] [facility] [address] [place] [address] Eitan Lazar DO NO ADDRESS ON FILE HYPERTENSION NOS (Primary Dx); Vaccine for influenza Social History Tobacco Use Types Packs/Day Years Used Date Smoking Tobacco: Never Assessed Sex and Gender Information Value Date Recorded Sex Assigned at Not on file Legal 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
--- OUTSIDE RECORDS SUMMARY | 2025-02-11 10:25 | XMS_ITS | Clinical Summary ---
Author Organization [facility] Address [address] [facility] [address] [place] [address] Care Team Providers Care Dragsaw Operator Name Role Phone Non-Staff, Physician Primary [...] complication, without long-term current use of insulin (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) LIPID PANEL Routine 11/10/2017 Essential hypertension HEMOGLOBIN A1C Routine 11/10/2017 Type 2 diabetes mellitus without complication, without long-term current use of insulin ([facility]) from Last 3 Months or Most Recently Relevant to Health Maintenance Results * MICROALBUMIN/CREATININE RATIO, RANDOM UR (11/10/2017) Urine URINE SPECIMEN OBTAINED BY CLEAN CATCH PROCEDURE / Unknown SubC ControlP URINE ORDERABLES Final Resu lt Performing Organization Address [facility]/ZIP Co de Phone Number [facility] * (ABNORMAL) HEMOGLOBIN A1C (11/10/2017) Blood [employer] PROFESSOR OF SPANISH CHEMISTRY ORDERABLES Final Result Performing Organization Address [facility] Co de Phone Number [facility] * LIPID PANEL (11/10/2017) Blood [employer] PROFESSOR OF SPANISH CHEMISTRY ORDERABLES Final Result [facility] from Last 3 Months or Most Recently Relevant to Health Maintenance Insurance MEDICARE PART A AND B Care Teams Dragsaw Operator Relationship Specialty Start Date End Date Non-Staff, Physician NO ADDRESS ON FILE PCP - General 12/22/19
--- OUTSIDE RECORDS SUMMARY | 2025-02-11 10:25 | XMS_ITS | Encounter Summary ---
Author Organization [facility] Address [address] [place] [address] Care Team Providers Care Window Dresser Name Role Phone Non-Staff, Physician Primary Care Provider Unava ilable Encounter Details Date Type Department Care Team (Latest Contact Info) Description 08/15/2003 Outpatient Historical 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
[2025-02-11 10:29] LABS: Hematocrit 35.3 % (37-53); Hemoglobin 11.80 g/dL (11.27-16.99); Mean Corpuscular HGB Conc 33.4 g/dL (30-55); Mean Corpuscular Hemoglobin 29.1 pg (27-33); Mean Corpuscular Volume 87.2 fl (82-101); Nucleated Red Blood Cells % 0 %; Platelet Count 346 10^3/cmm (157-399); Red Blood Count 4.05 10^6/uL (3.85-5.65); White Blood Count 11.39 10^3/uL (3.29-11.43)
[2025-02-11 10:52] LABS: Alanine Aminotransferase < 5 U/L (0-41); Albumin Level 4.0 g/dL (3.5-5.2); Alkaline Phosphatase 135 U/L (40-130); Anion Gap 17.7 (5-19); Aspartate Amino Transferase 10 U/L (0-40); Blood Urea Nitrogen 22 mg/dL (8-23); Calcium 10.3 mg/dL (8.5-10.5); Carbon Dioxide 27 mmol/L (22-29); Chloride 95 mmol/L (98-107); Globulin 2.4 g/dL (1.3-4.6); Glucose 201 mg/dL (65-115); Osmolality Calculated 289 mOsm/kg (285-295); Potassium 4.7 mmol/L (3.5-5.1); Sodium 135 mmol/L (136-145); Total Protein 6.4 g/dL (6.6-8.7)
[2025-02-11 10:54] LABS: Troponin(5th) Baseline 23 ng/L (0-15)
[2025-02-11 10:57] LABS: Glucose Urine UA Negative (Normal); Nitrate Urine Negative (Negative); Specific Gravity, Urine 1.011 (1.005-1.030)
[2025-02-11 11:02] LABS: Add Urine Microscopic? NO; Charge for UA Resulting for Rev
[2025-02-11 12:28] VITALS: BP 111/62; PULSE 63; O2SAT 98
[2025-02-11 12:37] LABS: Troponin 5 2HR 19.54 ng/L (0-15)
[2025-02-11 12:51] LABS: Troponin 5 2HR Delta -3.46 ABS# (0-10)
--- NOTE | 2025-02-11 12:53 | ECG_ITS ---
[facility]11 Pat Name: Raheem Michaels Department: Room: Gender: Male Plc Controls Engineer: : 1945 Requested By: Ronnie Fairchild Order Number: [id number] Reading MD: Adrián Carpenter M.D. Measurements Intervals [place] Rate: 64 P: 51 IA: 181 QRS: -26 QRSD: 100 T: 56 QT: 389 QTc: 402 Interpretive Statements SINUS RHYTHM BORDERLINE LEFT AXIS DEVIATION [QRS AXIS < -20] Compared to ECG 02/11/2025 10:24:53 No significant changes Electronically Signed On 02-12-2025 16:19:52 CALENDER WIND UP HELPER by Adrián Carpenter M.D. [email or web address]
[2025-02-11 12:58] VITALS: BP 106/56; PULSE 63; O2SAT 91
[2025-02-11 13:43] VITALS: BP 109/55; PULSE 68; O2SAT 95
--- NOTE | 2025-02-11 14:07 | ED_ITS ---
HPI - Syncope 2 General: Chief Complaint: Syncope Stated Complaint: syncope Time Seen by Provider: 02/11/25 10:19 History of Present Illness: 80-year-old male presents emergency room after syncopal episode heat gotten up to answer the door he got lightheaded dizzy and fell down. He did not strike his head he never fully lost consciousness he did not have any chest pain. He says he has this frequently has been seen for before had evaluation including an echocardiogram that he was advised they did not find anything. He denies any chest pain or tightness he is no focal neurologic deficits Associated symptoms: Deny abdominal pain, chest pain or fever(s) Related Data Home Medications ?Medication ?Instructions ?Recorded ?Confirmed dicyclomine 20 mg tablet 20 mg PO TID PRN abdominal p ain 10/14/24 02/11/25 amitriptyline 50 mg tablet 50 mg PO BID 02/11/2502/11 amlodipine 10 mg tablet 10 mg PO DAILY 02/11/2501/28 lisinopril 20 mg tablet 20 mg PO BID 02/11/25 Previous Rx's ?Medication ?Instructions ?Recorded metformin 1,000 mg tablet 1,000 mg PO BID #180 tabs metoprolol tartrate 100 mg tablet 100 mg PO BID #180 t abs 09/21/24 Allergies Allergy/AdvReac Type Severity Reaction Status Date / Time No Known Allergies Allergy Verified 11/25/24 08:57 Review of Systems 2 Const: Denies: fever(s) or chills Card: Denies: chest pain Resp: Denies: dyspnea GI: Denies: abdominal pain : Denies: dysuria, urinary frequency or urinary urgency Musc: Denies: neck pain or back pain Skin/Breast: Denies: rash PFSH ED 2 PFSH: Medical History Anxiety Hx of irritable bowel syndrome DM w/o complication type II HTN (hypertension) Adrenal nodule Family History Father Hypertension Diabetes Social History Smoking and tobacco/nicotine status: former use of tobacco/nicotine Alcohol intake: never Substance/Drug Use: never Lives independently: Yes Household members: spouse Housing: House Marital status: Physical Exam 2 Const: COMMON NORMALS: no acute distress GENERAL APPEARANCE: cooperative and comfortable ORIENTATION/CONSCIOUSNESS: Yes awake, Yes oriented to person, Yes oriented to place and Yes oriented to time HENMT: COMMON NORMALS: normocephalic, atraumatic and hearing grossly normal bilaterally HEAD & SCALP: normocephalic and atraumatic Resp: COMMON NORMALS: normal respiratory effort, No retractions, No use of accessory muscles and clear to auscultation bilaterally AUSCULTATION: clear to auscultation bilaterally Cardio: COMMON NORMALS: regular rate, regular rhythm and No murmurs present (Cardio) RATE: regular rate RHYTHM: regular rhythm GI: COMMON NORMALS: Soft to palpation and No hepatosplenomegaly present A USCULTATION: Yes normoactive bowel sounds PALPATION: Yes Soft to palpation, No Tenderness to palpation present (GI), No Guarding due to palpation present (GI) and Yes No hepatosplenomegaly present Extremity: COMMON NORMALS: normal to inspection, capillary refill normal, no clubbing, cyanosis or edema, no calf tenderness and no pedal edema Neuro: SENSORIUM/ORIENTATION: Yes oriented to person, Yes oriented to place and Yes oriented to time OTHER: No focal neurologic deficits noted good strength in all extremities normal facial symmetry no ataxia Skin: COMMON NORMALS: no rashes or lesions noted GENERAL SKIN EXAM: no rashes or lesions noted Course 2 Vital Signs: Vital signs: Vital Signs Temperature 98.0 F 02/11/25 10:21 Pulse Rate 68 02/11/25 13:43 Respiratory Rate 17 02/11/25 10:21 Blood Pressure 109/55 02/11/25 13:43 Pulse Oximetry 95 02/11/25 13:43 Oxygen Delivery Me thod Room Air 02/11/25 13:43 MDM - Syncope Medical Decision Making Suspect patient had episode of orthostasis. Labs and imaging reviewed as found on the chart. EKG does not show anything acute reviewed previous echo no valvular disease mild ventricular hypertrophy. Discussed with the patient observation for syncopal episode he does not wish that he prefers to go home. Will discharge home have him hold his hydrochlorothiazide he has a follow-up appoint with cardiology this coming week. Medical Records I reviewed the patient's medical records. Lab Data 02/11/25 10:24 02/11/25 10:24 Radiology Impressions Chest X-Ray 02/11/25 10:10 IMPRESSION: No acute findings. Laboratory Results WBC 11.39 10^3/uL (3.29-11.43) 02/11/25 10:24 RBC 4.05 10^6/uL (3.85-5.65) 02/11/25 10:24 Hgb 11.80 g/dL (11.27-16.99) 02/11/25 10:24 Hct 35.3 % (37-53) L 02/11/25 10:24 MCV 87.2 fl (82-101) 02/11/25 10:24 MCH 29.1 pg (27-33) 02/11/25 10:24 MCHC 33.4 g/dL (30-55) 02/11/25 10:24 RDW 12.6 % (12.1-15.1) 02/11/25 10:24 Plt Count 346 10^3/cmm (157-399) 02/11/25 10:24 MPV 8.8 fL (7.4-10.4) 02/11/25 10:24 Neut % (Auto) 26.5 % 02/11/25 10:24 Lymph % (Auto) 69.8 % 02/11/25 10:24 [place] % (Auto) 1.3 % 02/11/25 10:24 Eos % (Auto) 1.2 % 02/11/25 10:24 Baso % (Auto) 0.2 % 02/11/25 10:24 Neut # (Auto) 3.02 10^3/uL (1.8-7.7) 02/11/25 10:24 Lymph # (Auto) 8.0 10^3/uL (0.8-4.8) H 02/11/25 10:24 [place] # (Auto) 0.2 10^3/uL (0.2-0.9) 02/11/25 10:24 Eos # (Auto) 0.1 10^3/uL (0.0-0.8) 02/11/25 10:24 Baso # (Auto) 0.0 10^3/uL (0.0-0.1) 02/11/25 10:24 Nucleated RBC % (auto) 0 % 02/11/25 10:24 Nucleated RBCs # 0.0 /100WBC 02/11/25 10:24 Sodium 135 mmol/L (136-145) L 02/11/25 10:24 Potassium 4.7 mmol/L (3.5-5.1) 02/11/25 10:24 Chloride 95 mmol/L (98-107) L 02/11/25 10:24 Carbon Dioxide 27 mmol/L (22-29) 02/11/25 10:24 Anion Gap 17.7 (5-19) 02/11/25 10:24 BUN 22 mg/dL (8-23) 02/11/25 10:24 Creatinine 1.5 mg/dL (0.7-1.2) H 02/11/25 10:24 GFR Calculation Not Reportable 02/11/25 10:24 Glucose 201 mg/dL (65-115) H 02/11/25 10:24 Calculated Osmolality 289 mOsm/kg (285-295) 02/11/25 10:24 Calcium 10.3 mg/dL (8.5-10.5) 02/11/25 10:24 Total Bilirubin 0.3 mg/dL (0.15-1.2) 02/11/25 10:24 AST 10 U/L (0-40) 02/11/25 10:24 ALT < 5 U/L (0-41) 02/11/25 10:24 Alkaline Phosphatase 135 U/L (40-130) H 02/11/25 10:24 Troponin T Baseline 23 ng/L (0-15) H 02/11/25 10:24 Troponin T 120 Minute 19.54 ng/L (0-15) H 02/11/25 12:09 Delta Troponin T -3.46 ABS# (0-10) L 02/11/25 12:09 Total Protein 6.4 g/dL (6.6-8.7) L 02/11/25 10:24 Albumin 4.0 g/dL (3.5-5.2) 02/11/25 10:24 Globulin 2.4 g/dL (1.3-4.6) 02/11/25 10:24 Urine Color Yellow (Yellow) 02/11/25 10:51 Urine Appearance Clear (CLEAR) 02/11/25 10:51 Urine pH 7.5 (5-7) 02/11/25 10:51 Ur Specific [place] 1.011 (1.005-1.030) 02/11/25 10:51 Urine Protein Negative (Negative) 02/11/25 10:51 Urine Glucose (UA) Negative (Normal) 02/11/25 10:51 Urine Ketones Negative (Negative) 02/11/25 10:51 Urine Blood Negative (Negative) 02/11/25 10:51 Urine Nitrate Negative (Negative) 02/11/25 10:51 Urine Bilirubin Negative (Negative) 02/11/25 10:51 Urine Urobilinogen 1.0 mg/dL (Negative) 02/11/25 10:51 Ur Leukocyte Esterase Negative (Negative) 02/11/25 10:51 Urine RBC 0-2 /hpf (0-2) 02/11/25 10:51 Urine WBC 0-5 /hpf (0-5) 02/11/25 10:51 Ur Squamous Epith Cells 0-5 /hpf (0-5) 02/11/25 10:51 Amorphous Sediment Not Reportable 02/11/25 10:51 Urine Bacteria None seen /hpf (NONE) 02/11/25 10:51 Hyaline Casts 0.40 /lpf 02/11/25 10:51 All radiology interpretation(s) finalized by discharge EKG Data EKG 1: I personally reviewed and interpreted this EKG as follows: Interpretation: EKG 1115 2025-01-20 normal sinus rhythm left axis deviation rate of 77. [place] 180 QTc [address] changes noted compared to EKG 10/18/2024 no significant changes noted EKG 2: I personally reviewed and interpreted this EKG as follows: Interpretation: EKG 02/11/2025 1253 sinus rhythm rate of 64 QTc 402 TX interval 181 compared to EKG done earlier today no significant change both EKG showed left axis deviation no acute STEMI Discharge Plan Discharge Patient Disposition: Home Clinical Impression: Syncope due to orthostatic hypotension Condition: Stable Prescriptions: Discontinued hydrochlorothiazide 25 mg tablet 25 mg PO DAILY Qty: 90 0RF No Action metformin 1,000 mg tablet 1,000 mg PO BID Qty: 180 1RF metoprolol tartrate 100 mg tablet 100 mg PO BID Qty: 180 1RF dicyclomine 20 mg tablet 20 mg PO TID PRN (Reason: abdominal pain ) lisinopril 20 mg tablet 20 mg PO BID amitriptyline 50 mg tablet 50 mg PO BID amlodipine 10 mg tablet 10 mg PO DAILY Discharge Orders: Discharge ED (Routine); Ordered 02/11/25 Ordered By: Ronnie Worrell Referrals: Randa Rojas FNP [Primary Care Provider, Family Practice] Discharge Diet: Usual diet Discharge Activity: Increase activity as tolerated Patient Instructions: Opioid Safety, Pain Management, Patient Portal & Tyra Instructions Activity Restrictions/Additional Instructions: [facility]. It is very important that you follow up as instructed or that you return to the Emergency Department should you have concerns or if your condition changes or worsens in any way. Emergency department visits are focused on emergent conditions, in some cases you may require further evaluation on an outpatient basis. You were seen in the emergency room after what from your description sounds if you have an episode of orthostatic hypotension. We reviewed the recent echocardiogram he had done there was no significant abnormalities on that. No significant valvular disease. We did discussed observing overnight which you declined he said he preferred to go home. Recommended that you hold your hydrochlorothiazide for now and follow-up with your emergency specialist as scheduled next week. Return if you have any further problems. (Please note that included in your discharge packet is information concerning opioid safety and pain management. This information is given to all patients were discharged from the ER regardless of their discharge diagnosis or the medicines they usually take or are prescribed.) Print Language: Guatemalan Coding Level of Care Code ED Commercial Pilot for Alex Dee
== END 2025-02-11 13:53 | disposition home or self-care (01) ==
PROVIDERS: Emergency Provider Family Medicine; PCP Nurse Practitioner Family
DX: I95.1 Orthostatic hypotension (principal); Z79.84 Long term (current) use of oral hypoglycemic drugs; Z87.891 Personal history of nicotine dependence; E11.9 Type 2 diabetes mellitus without complications; I10 Essential (primary) hypertension
CPT/HCPCS: 36415; 71045; 80053; 81001; 81003; 84484; 85025; 93005; 99285

== ENCOUNTER → 2025-02-13 13:55 | Outpatient (BNVA) | payer MEDICARE, SELFPAY | PROVIDERS: PCP Nurse Practitioner Family; Visit Provider Internal Medicine Cardiovascular Disease | DX: R00.2 Palpitations (principal); I49.1 Atrial premature depolarization; I10 Essential (primary) hypertension; I95.1 Orthostatic hypotension; Z87.891 Personal history of nicotine dependence; R00.0 Tachycardia, unspecified | CPT/HCPCS: 93005; 99214 ==